=== PATIENT | female | born 1960 | race Caucasian/White ===

== ENCOUNTER 2024-11-15 12:38 | Outpatient (OUT) | payer MEDICARE, SELFPAY ==
--- NOTE | 2024-11-15 12:56 | XR_ITS ---
[place] [id number] Patient Name: FELICITY MARTINEZ MRN: [id number] date: 1960 Sex: F Assigned Patient Location: [facility] Current Patient Location: [facility] Accession/Order Number: [id number] Exam Date: 11/15/2024 14:11 Report Date: 11/15/2024 14:12 At the request of: HENOK DRISCOLL Procedure: XR shoulder RT min 2V RIGHT SHOULDER - - 3 views CLINICAL HISTORY: Right Shoulder Fall, Neck Pain, Recent Fall COMPARISON: None FINDINGS: Mild degenerative changes of the AC and glenohumeral joints without acute bony process. XR/XR shoulder RT min 2V IMPRESSION: MILD DEGENERATIVE CHANGES OF THE RIGHT SHOULDER WITHOUT ACUTE BONY PROCESS. Impression dictated by: Lawson Joe Jr.ODevan11/15/2024 2:12 PM Dictation Location: [employer] Electronically authenticated by: [id number] Y Date: 11/15/2024 14:12
--- NOTE | 2024-11-15 12:56 | XR_ITS ---
[place] [id number] Patient Name: FELICITY MARTINEZ MRN: [id number] date: 1960 Sex: F Assigned Patient Location: [facility] Current Patient Location: [facility] Accession/Order Number: [id number] Exam Date: 11/15/2024 14:11 Report Date: 11/15/2024 14:11 At the request of: HENOK DRISCOLL Procedure: XR cervical spine 5V CERVICAL SPINE 5 views: CLINICAL HISTORY: Right Shoulder Fall, Neck Pain, Recent Fall COMPARISON: None FINDINGS: Vertebral body heights appear maintained. Mild spondylosis C6-7. Mild diffuse facet joint degenerative changes. No prevertebral soft tissue swelling. XR/XR cervical spine 5V IMPRESSION: MILD SPONDYLOSIS C6-7. NO ACUTE BONY PROCESS IS SEEN. Impression dictated by: Shayne Duval Jr., D.O.11/15/2024 2:11 PM Dictation Location: [place] [id number] Electronically authenticated by: [id number] Y Date: 11/15/2024 14:11
== END 2024-11-15 12:39 | disposition home or self-care (01) ==
PROVIDERS: PCP Nurse Practitioner; Visit Provider Nurse Practitioner
DX: M25.511 Pain in right shoulder (principal); M54.2 Cervicalgia
CPT/HCPCS: 72050; 73030

== ENCOUNTER 2025-07-31 09:14 | Outpatient (OUT) | payer MEDICARE, SELFPAY ==
--- OUTSIDE RECORDS SUMMARY | 2025-07-31 09:20 | XMS_ITS | CCD ---
Author Organization [facility] Providers Care Java Websphere Developer Name Role Phone ROSE, DR REGINA Philip Admitting Unavailable KULKARNI, DR REGINA Philip Attending Unavailable KULKARNI, DR REGINA Philip Primary Care Unavailable KULKARNI, DR REGINA Philip Attending Unavailable KULKARNI, DR REGINA Philip Consulting Unavailable KULKARNI, DR REGINA Philip Primary Care Unavailable KULKARNI, DR REGINA Philip Admitting Unavailable BASCO, DR ELZBIETA Tomlinson Consulting Unavailable KULKARNI, DR REGINA Philip Attending Unavailable KULKARNI, DR REGINA Philip Consulting Unavailable ROSE, DR REGINA Philip Primary Care Unavailable KULKARNI, DR REGINA Philip Admitting Unavailable KULKARNI, DR REGINA Philip Admitting Unavailable KULKARNI, DR REGINA Philip Attending Unavailable KULKARNI, DR REGINA Philip Primary Care Unavailable REGINA KULKARNI Primary Care Physician REGINA KULKARNI Primary Care Physician Marilyn Pastrana Unavailable SIMON Pastrana Attending Provider Jenifer Landry Primary Care Physician [phone] Hector Panda Primary Care Physician [phone] Frantz, HORSE RIDING COACH OR INSTRUCTOR Jenifer Lynn Admitting Unavailable Frantz, HORSE RIDING COACH OR INSTRUCTOR Jenifer Lynn Attending Unavailable TATUMGERBER Admitting Unavailable TATUMGERBER Attending Unavailable GERBER WINN Attending Unavailable FrantzJenifer Attending Unavailable Frantz, Jenifer Lynn Admitting Unavailable Frantz, Jenifer Lynn Attending Unavailable Frantz, Jenifer Lynn Attending Unavailable KiLadarius little Attending Unavailable KiLadarius little Admitting Unavailable Frantz, Jenifer Lynn Attending Unavailable Frantz, Jenifer Lynn Attending Unavailable Frantz, Jenifer Lynn Admitting Unavailable Frantz, Jenifer Lynn Attending Unavailable FrantzJenifer Referring Unavailable Frantz, Jenifer Lynn Admitting Unavailable Frantz, Jenifer Lynn Attending Unavailable Frantz, Jenifer Lynn Attending Unavailable Fratnz, Jenifer Lynn Admitting Unavailable Perfecto PEREZ, Azra Herrera Attending Provider Jenifer España Primary Care Provider [phone] Frantz, Jenifer Lynn Attending Unavailable Frantz, Jenifer Lynn Attending Unavailable Frantz, Jenifer Lynn Attending Unavailable Frantz, Jenifer Lynn Attending Unavailable TATUM, GERBER Esqueda Attending Unavailable Frantz, Jenifer Lynn Attending Unavailable Frantz, Jenifer Lynn Admitting Unavailable Frantz, Jenifer Lynn Attending Unavailable TATUM, COFFEE URN ATTENDANT GERBER A Attending Unavailabl e TATUM, COFFEE URN ATTENDANT GERBER A Admitting Unavailabl e TATUM, GERBER A Attending Unavailable Ki, Ladarius Burdick Referring Unavailable Ik, Ladarius Burdick Attending Unavailable Ki, Ladarius Burdick Admitting Unavailable TATUM, GERBER A Attending Unavailable TATUM, GERBER A Admitting Unavailable TATUM, GERBER A Attending Unavailable TATUM, GERBER A Attending Unavailable Frantz, Jenifer Lynn Attending Unavailable Perfecto, Azra Herrera Admitting Unavailable Perfecto, Azra Herrera Attending Unavailable Frantz, Jenifer Lynn Attending Unavailable Frantz, Jenifer Lynn Attending Unavailable Allergies Allergy ClassificationReported Allergen(s)Allergy TypeDate of OnsetReaction(s) Facility (7 sources)No Known Medication Allergies; Translations: [No Known Medication Allergies]Propensity to adverse reactions (disorder)[facility] Medications Current Medications MedicationDrug Class(es)DatesSig (Normalized)Sig (Original)amoxicillin 875 mg / clavulanate 125 mg oral tablet (1 source)Penicillin-class AntibacterialStart: 08-20-2023 End: 19-52-1150xwhh 1 tablet by mouth every twelve hoursAugmentin 875 mg oral tablet = 1 tab(s), Oral, q12hr, X 7 day(s), # 14 tab(s), Refills(s) 0, Pharmacy: [id number], 158.7, cm, 08/20/23 13:46:00 EST, Height/Length Dosing, 77.8, kg, 08/20/2313:46:00 EST, Weight Dosing Start Date: 08/20/23 Stop Date: 08/27/23 Status: Orderedatorvastatin 20 mg oral tablet (4 sources)HMG-CoA Reductase InhibitorStart: 07-88-4072Pxeit: 14-58-1709ayjb 1 tablet by mouth once dailyatorvastatin 20 mg Tab See Instructions, TAKE 1 TABLET BY MOUTH EVERY DAY, # 90 tab(s), Refills(s) 1, Pharmacy: [facility] STORE [id number], 160, cm, 01/30/25 8:12:00 EDT, Height/Length Dosing, 83.9, kg, 01/30/25 8:12:00 EDT, Weight Dosing Start Date: 02/09/25 Status: Ordered Quantity: 90.0 Unit: tab(s) Repeat number: 1Start: 17-68-1195xmhz 1 tablet by mouth once dailyatorvastatin 20 mg Tab See Instructions, TAKE 1 TABLET BY MOUTH EVERY DAY, # 90 tab(s), Refills(s) 1, Pharmacy: [facility] ST[facility], 160, cm, 02/19/24 10:00:00 EDT, Height/Length Dosing, 77.4, kg, 02/19/24 10:00:00 EDT, Weight Dosing Start Date: 05/24/24 Status: Orderedcephalexin 500 mg oral capsule (2 sources)Cephalosporin AntibacterialStart: 65-33-8476uqze 1 capsule by mouth twice dailylevothyroxine sodium 0.025 mg oral tablet (20 sources)l-ThyroxineStart: 45-27-5087Csihw: 04-15-2025 End: 70-56-0737ndyg 1 tablet by mouth once dailyLevothyroxine (Synthroid) 100 mcg tablet Discontinued 100 MCG PO Daily April 15, 2025 12:00am June 04, 2025 11:12amStart: 46-18-4069scvc 1 tablet by mouth once dailylevothyroxine 25 mcg (0.025 mg) Tab 25 mcg, Oral, Daily, # 90 tab(s), Refills(s) 5, Pharmacy: [facility]/pharmacy #[id number], 158.7, cm, 01/06/24 8:43:00 EDT, Height/Length Dosing, 77.4, kg, 01/06/24 8:43:00 EDT, Weight Dosing Start Date: 01/06/24 Status: Ordered Quantity: 90.0 Unit: tab(s) Repeat number: 6Start: 55-64-1850plvn 25 ug by mouth once dailylevothyroxine 25 mcg, Oral, Daily, Refills(s) 0, Thyroid Start Date: 06/19/20 Status: OrderedSynthroid Activephenazopyridine hydrochloride 200 mg oral tablet (9 sources)Start: 62-88-4083nnxo 1 tablet by mouth every eight hoursPyridium 200 MG 1 tablet after meals Orally Three times a day for 2 day(s) May, Activesulfamethoxazole 800 mg / trimethoprim 160 mg oral tablet (11 sources)Dihydrofolate Reductase Inhibitor Antibacterial, Sulfonamide AntimicrobialStart: 08-30-2024 End: 30-51-7057Nnsbbfu D.S. 800 mg-160 mg Tab 1 tab(s), Oral, BID for 7 day(s), 14 tab(s), Refill(s) 0, [id number], 160, cm, 08/30/24 13:45:00 EST, Height/Length Dosing, 82.7, kg, 08/30/24 13:45:00 EST, Weight Dosing Start Date: 08/30/24 Stop Date: 09/06/24 Status: OrderedStart: 02-19-2024 End: 79-90-5241Janeqhi D.S. 800 mg-160 mg Tab 1 tab(s), Oral, BID for 5 day(s), 10 tab(s), Refill(s) 0, [id number], 160, cm, 02/19/24 10:00:00 EDT, Height/Length Dosing, 77.4, kg, 02/19/24 10:00:00 EDT, Weight Dosing Start Date: 02/19/24 Stop Date: 02/24/24 Status: OrderedStart: 00-77-6790segc 1 tablet by mouth every twelve hoursBactrim DS 800-160 MG 1 tablet Orally Twice a day for 10 day(s) May, Active Completed/Discontinued Medications MedicationDrug Class(es)DatesSig (Normalized)Sig (Original)amoxicillin 875 mg oral tablet (6 sources)Penicillin-class AntibacterialStart: 50-71-9742gfsc 1 tablet by mouth every twelve hoursAmoxicillin 875 MG 1 tablet Orally every 12 hrs for 7 days Feb, Not-Takingdextromethorphan hydrobromide 1.5 mg/ml / pyrilamine maleate 1.5 mg/ml oral solution (6 sources)Uncompetitive G-wiluro-D-aspartate Receptor Antagonist, Sigma-1 AgonistStart: 20-35-3878Pxieer DM 7.5-7.5 MG/5ML 10 ml Orally every 6-8 hours as needed for 8 days Feb, Not-Takingfluticasone propionate 0.05 mg/actuat metered dose nasal spray (6 sources)CorticosteroidStart: 01-03-6765efsg 1 spray(s) nasal route once daily Fluticasone Propionate 50 MCG/ACT 1 spray in each nostril Nasally Once a day for 21 days Oct, Not-Taking Problems Problem ClassificationProblemDateDocumented DateEpisodic/ChronicAllergic reactions (6 sources)Contact dermatitis due to poison francesca; Translations: [Allergic contact dermatitis due to plants, except food]94-96-9416BpgbbswkWgdiqlsor of lipid metabolism (7 sources)Ehxnrwwfmoqtyp14-76-1625IhoqkfnF Codes: Fall (6 sources)Fall in ioja79-30-1481Jvlpexfaogmte symptoms and ill-defined conditions (9 sources)Dysuria; Translations: [Increased frequency of urination]Onset: 02-97-9113WsdslmwbCqyzdphh; including migraine (6 sources)Aqoaotvu76-03-2291IrfmuacnPvckq valve disorders (7 sources)Mitral valve hcqhruff31-54-7880OiadkpsZpmkf and unspecified benign neoplasm (9 sources)Polyp of -62-0729QfazwimmWlqiw connective tissue disease (4 sources)Impingement syndrome of left shoulder; Translations: [IMPINGEMENT SYNDROME LEFT SHOULDER]Onset: 34-74-2262RlzyozjrCctlo connective tissue disease (1 source)Impingement syndrome of right shoulder; Translations: [IMPINGEMENT SYNDROME RIGHT SHOULDER]Onset: 47-81-3542HhewdaarGymne injuries and conditions due to external causes (6 sources)Injury of gadu67-21-3532VbwusqxxBvpku injuries and conditions due to external causes (1 source)History of izfo32-44-4650TzohijlmQwojy lower respiratory disease (2 sources)Lvbsp98-55-6861RsuqqoyzJtqfm non-traumatic joint disorders (4 sources)Pain in left shoulder; Translations: [PAIN IN LEFT SHOULDER]Onset: 62-39-2928LorivgwgKsscv nutritional; endocrine; and metabolic disorders (9 sources)Body mass index 30+ - qhidrac75-29-3028MvwjqeqYqgju nutritional; endocrine; and metabolic disorders (1 source)Simple -27-2471TondpgaOotgi upper respiratory disease (9 sources)Seasonal allergy; Translations: [Other seasonal allergic rhinitis] 27-90-1354EjfivztLoxzk upper respiratory infections (7 sources)Enllqaxab47-46-6460GjhcjwfGkohmsqmyzg; intervertebral disc disorders; other back problems (1 source)Neck qiqb93-03-2154GuiqvbkiSbwjbya disorders (20 sources)Hypothyroidism, unspecified; Translations: [Hypothyroidism]Onset: 53-13-5273UbdmxmoEkcdbqfthgyx (7 sources)Patient encounter hepcck97-24-0031Mcgjxipwkymw (1 source)Kqq-omorlb84-44octkrj73-33-9808Rabujaraazrc (1 source)Pain of right shoulder fasjjf88-16-9662Dylknxo tract infections (11 sources)Acute cystitis without hematuria; Translations: [Urinary tract infection, site not specified]Episodic Results Test NameValueInterpretationReference RangeFacilityAmbulatory Visit Summaryon 56-33-9474Mrjayeolbz Visit SummaryAmbulatory Visit Summary MEGAN MARTINEZ Morgan :1960 Visit Date:06/30/2025 Ambulatory Visit Instructions Your Diagnosis Plantar fasciitis Your Care Team Attending Physician - Jenifer Dotson Primary Care Physician - Jenifer Dotson This Is Your Medications List levothyroxine (levothyroxine 25 mcg (0.025 mg) Tab) Procedures Performed Colonoscopy (08/23/2020), Appendectomy, Cholecystectomy, Rotator cuff. Discharge Vitals Heart Rate (Peripheral) 83 Blood Pressure 120/60 Height 160 cm Height 63 in Weight 86.2 kg Weight 190.038 lb BMI 33.67 What to do next Scheduled Follow-Up Appointments Thursday2025 9:30 AM EDT Where: [place] [id number]- Medications What How Much When Instructions Unchanged levothyroxine (levothyroxine 25 mcg (0.025 mg) Tab) See instructions TAKE 1 TABLET BY MOUTH EVERY DAY Allergies No Known Allergies No Known Medication Allergies Problems Ongoing - Any problem that you are currently receiving treatment for. BMI 32.0-32.9,adult Colon polyp Exogenous obesity Hyperlipidemia Hypothyroidism Mitral valve prolapse Non-smoker Nonsmoker Obesity (BMI 30.0-34.9) Plantar fasciitis Wellness examination Historical - Any problem that you are no longer receiving treatment for. Acute urinary tract infection (bladder infection or UTI) BMI 30.0-30.9,adult BMI 31.0-31.9,adult Cough Fall in home Head injury Headache History of recent fall Neck pain Right shoulder pain Sinusitis Urinary frequency Patient Survey You may receive a survey via text or e-mail asking about your office visit. Please share your experience with us by completing your survey. We appreciate your feedback and thank you for choosing us for your care. Education Materials Plantar Fasciitis Plantar fasciitis is a painful foot condition that affects the heel. It occurs when the band of tissue that connects the toes to the heel bone (plantar fascia) becomes irritated. This can happen as the result of exercising too much or doing other repetitive activities (overuse injury). Plantar fasciitis can cause mild irritation to severe pain that makes it difficult to walk or move.The pain is usually worse in the morning after sleeping, or after sitting or lying down for a period of time. Pain may also be worse after long periods of walking or standing. What are the causes? This condition may be caused by: ??? Standing for long periods of time. ??? Wearing shoes that do not have good arch support. ??? Doing activities that put stress on joints (high-impact activities). This includes ballet and exercise that makes your heart beat faster (aerobic exercise), such as running. ??? Being overweight. ??? An abnormal way of walking (gait). ??? Tight muscles in the back of your lower leg (calf). ??? High arches in your feet or flat feet. ??? Starting a new athletic activity. What are the signs or symptoms? The main symptom of this condition is heel pain. Pain may get worse after the following: ??? Taking the first steps after a time of rest, especially in the morning after awakening, or after you have been sitting or lying down for a while. ??? Long periods of standing still. Pain may decrease after 30???45 minutes of activity, such as gentle walking. How is this diagnosed? This condition may be diagnosed based on your medical history, a physical exam, and your symptoms. Your health care provider will check for: ??? A tender area on the bottom of your foot. ??? A high arch in your foot or flat feet. ??? Pain when you move your foot. ??? Difficulty moving your foot. You may have imaging tests to confirm the diagnosis, such as: ??? X-rays. ??? Ultrasound. ??? MRI. How is this treated? Treatment for plantar fasciitis depends on how severe your condition is. Treatment may include: ??? Rest, ice, pressure (compression), and raising (elevating) the affected foot. This is called RICE therapy. Your health care provider may recommend RICE therapy along with kxbw-oan-bgdjyyy pain medicines to manage your pain. ??? Exercises to stretch your calves and your plantar fascia. ??? A splint that holds your foot in a stretched, upward position while you sleep (night splint). ??? Physical therapy to relieve symptoms and prevent problems in the future. ??? Injections of steroid medicine (cortisone) to relieve pain and inflammation. ??? Stimulating your plantar fascia with electrical impulses (extracorporeal shock wave therapy). This is usually the last treatment option before surgery. ??? Surgery, if other treatments have not worked after 12 months. Follow these instructions at home: Managing pain, stiffness, and swelling ??? If directed, put ice o (more content not included)...[facility] Medicine Office/Clinic Noteon [id number] Medicine Office/[facility] Note[facility] Note Chief Complaint right heel pain HPI Staff Pt is presenting for acute visit right heel pain Pain characteristics: Onset: yesterday Pain location: right heel Characteristics: can't apply pressure Medication used: ice History of Present Illness pt presents today with right heel pain Review of Systems PHQ Score Initial Depression Screen Score: 0 SCORE General: alert, no acute distress ENMT: oral mucosa moist, no pharyngeal erythema or exudate Cardiovascular: regular rate and rhythm, normal peripheral perfusion Respiratory: Lungs CTA, respirations non labored Extremities: no deformity, no trauma Neurological: oriented x 4, LOC appropriate for age, CN II-XII intact, motor strength equal & normal bilaterally, speech normal right heel all both sides and center bottom of foot painful, not redness or swelling Physical Exam Vitals & Measurements HR: 83(Peripheral) BP: 120/60 SpO2: 93% HT: 63 in HT: 160 cm WT: 190.038 lb WT: 86.2 kg BMI: 33.67 Assessment/Plan 1. Plantar fasciitis (M72.2: Plantar fascial fibromatosis) pt c/o worsening heel pain. she has been decorating her house the last couple of days and feels theheel pain has worsened. it is worst when she takes her first couple steps in the morning. will order meloxicam and medrol dose pack. if no improvement will refer to podiatry. RTC 4 weeks Ordered: meloxicam, 15 mg = 1 tab(s), Oral, Daily, # 30 tab(s), Refills(s) 0, Pharmacy: [facility]/pharmacy #[id number], 160, cm, 06/30/25 15:16:00 EST, Height/Length Dosing, 86.2, kg, 06/30/25 15:16:00 EST, Weight Dosing methylPREDNISolone, = 1 packet(s), Oral, As Directed, as directed on package labeling, X 6 day(s), # 21 tab(s), Refills(s) 0, Pharmacy: [facility]/pharmacy #[id number], 160, cm, 06/30/25 15:16:00 EST, Height/Length Dosing, 86.2, kg, 06/30/25 15:16:00 EST, Weight Dosing 2. BMI 33.0-33.9,adult (Z68.33: Body mass index [BMI] 33.0-33.9, adult) BMI education Follow-up No qualifying data available Patient Education Plantar Fasciitis Problem List/Past Medical History Ongoing BMI 32.0-32.9,adult BMI 33.0-33.9,adult Colon polyp Exogenous obesity Hyperlipidemia Hypothyroidism Mitral valve prolapse Non-smoker Nonsmoker Obesity (BMI 30.0-34.9) Plantar fasciitis Wellness examination Historical Acute urinary tract infection (bladder infection or UTI) BMI 30.0-30.9,adult BMI 31.0-31.9,adult Cough Fall in home Head injury Headache History of recent fall Neck pain Right shoulder pain Sinusitis Urinary frequency Procedure/Surgical History Colonoscopy (08/23/2020), Appendectomy, Cholecystectomy, Rotator cuff. Medications levothyroxine 25 mcg (0.025 mg) Tab, See Instructions Medrol 4 mg Tab, 1 packet(s), Oral, As Directed meloxicam 15 mg Tab, 15 mg= 1 tab(s), Oral, Daily Allergies No Known Allergies No Known Medication Allergies Social History Alcohol - Denies Alcohol Use, 02/01/2024 Never., 07/11/2024 Substance Abuse - Denies Substance Abuse, 06/19/2020 Never., 07/11/2024 Tobacco - Denies Tobacco Use, 06/19/2020 Never (less than 100 in lifetime) Tobacco Use:. Yes., 06/30/2025 Family History Family history is negative Immunizations Vaccine Date Status Comments influenza virus vaccine, inactivated 06/22/2024 Recorded influenza virus vaccine, inactivated 06/06/2023 Recorded influenza virus vaccine, inactivated 06/11/2022 Recorded SARS-CoV-2 (COVID-19) [id number] 05/06/2022 Recorded 2023-08-19: TPV60 SARS-CoV-2 (COVID-19) mRNA BNT-162b2 vax 08/15/2021 Recorded 2023-08-19: TPV60 influenza virus vaccine, inactivated 05/30/2021 Recorded SARS-CoV-2 (COVID-19) mRNA BNT-162b2 vax 12/28/2020 Recorded SARS-CoV-2 (COVID-19) mRNA BNT-162b2 vax 12/07/2020 Recorded influenza virus vaccine, inactivated 05/08/2020 Recorded influenza virus vaccine, inactivated 07/08/2019 Recorded influenza virus vaccine, inactivated 06/29/2018 Recorded influenza virus vaccine, inactivated 07/02/2017 RecordedGlenbeigh HospitalComment on above:Result Comment: Electronically Signed By: Jenifer Dotson.hardeep\Date and Time Signed: 06/30/25 15:32 ESTUrine Cultureon [id number] identified Cx Nom (U)Urine Culture Results >100,000 col/ml Mixed Bacterial Skin Contaminants 2 Days PERFORMED BY: [address] [place] [address] PATHOLOGIST DIETETIC INTERN AMEE NAVARRETE M.D.[facility] Physician GroupComment on above: Performed By: #### CUU #### [address] [address] [facility] – [place] Urineon [id number] identified Cx Nom (U) Microbiology PROCEDURE: Urine Culture [R1] SOURCE: U Random BODY SITE: COLLECTED DATE/TIME: 05/18/2025 13:22 EDT RECEIVED DATE/TIME: 05/18/2025 17:30 EDT START DATE/TIME: 05/18/2025 17:30 EDT FREE TEXT SOURCE: GERBER WINN CNP, CNP, GERBER Esqueda FINAL REPORTS Final Report [] Verified Date/Time: 05/20/2025 10:11 EDT 3,000 cfu/ml Mixed skin contaminants Performing Locations R1: This test was performed at: [facility], [address] [place] [address], [id number] [place] [address], NxvixgMbyugyGlenbeigh HospitalComment on above:Performed By: #### [id number] #### [facility] [address] [place] [id number] Urineon [id number] identified Cx Nom (U)Microbiology PROCEDURE: Urine Culture [R1] SOURCE: U Random BODY SITE: COLLECTED DATE/TIME: 05/11/2025 16:17 EDT RECEIVED DATE/TIME: 05/12/2025 17:11 EDT START DATE/TIME: 05/12/2025 17:11 EDT FREE TEXT SOURCE: GERBER WINN CNP, CNP, GERBER Esqueda FINAL REPORTS Final Report [] Verified Date/Time: 05/14/2025 06:53 EDT 30,000 cfu/ml Escherichia coli SUSCEPTIBILITY RESULTS LEGEND: S=Susceptible, N/R=Not Reported, Blank=Data not available, or drug not advisable or tested, I=Intermediate, ESBL=Extended spectrum beta-lactamase, R=Resistant, TFG=Thymidine-dependent strain, SOLE=Beta-lactamase positive, KENTON=mcg/m;(mg/L), S*=Predicted susceptible interp, R*=Predicted resistant interp EC Antibiotic KENTON Dilutn KENTON Interp Ampicillin <=8 S Ampicillin/ <=8/4 S Sulbactam Cefazolin <=2 S Cefepime <=2 S Ceftazidime/ <=8 S Avibactam Ceftriaxone <=1 S Cefuroxime <=4 S Ciprofloxacin <=0.25 S Ertapenem <=0.5 S Gentamicin <=2 S Levofloxacin <=0.5 S Meropenem <=1 S Nitrofurantoin <=32 S Piperacillin/ <=8 S Tazobactam Tetracycline <=4 S Tobramycin <=2 S Trimethoprim/ <=2/38 S Sulfa Performing Locations R1: This test was performed at: [facility], [address] [place] [address], [id number] , , SmofpoQvwqfcGlenbeigh HospitalComment on above:Performed By: #### [id number] #### [facility] [address] [place] [id number] Visit Summaryon [id number] Visit Summary Ambulatory Visit Summary MEGAN MARTINEZ :1960 Visit Date:05/11/2025 Ambulatory Visit Instructions Your Diagnosis Dysuria UTI symptoms Your Care Team Attending Physician - GERBER WINN CNP Primary Care Physician - Jenifer Dotson This Is Your Medications List levothyroxine (levothyroxine 25 mcg (0.025 mg) Tab) nitrofurantoin (Macrodantin 100 mg oral capsule) Procedures Performed Colonoscopy (08/23/2020), Appendectomy, Cholecystectomy, Rotator cuff. Discharge Vitals Temperature (Oral) 36.8 ???C Heart Rate (Peripheral) 92 Respiratory Rate 18 Blood Pressure 128/82 Height 160 cm Height 63 in Weight 85.2 kg Weight 187.834 lb BMI 33.28 What to do next Scheduled Follow-Up Appointments 2024 10:00 AM EDT Where: [address] [address]- Thursday2025 9:30 AM EDT Where: [place] [id number]- You Need to Schedule the Following Appointments Follow Up with GERBER WINN CNP, FAM When: Within 1 week Comments: EVA PARSON Where: [address] [place] [address] [phone] Business (1) Medications What How Much When Why Instructions New nitrofurantoin (Macrodantin 100 mg oral capsule) 1 Capsules By Mouth 4 times a day Dysuria UTI symptoms Duration: 7 Days Pickup at [facility]/pharmacy #[id number] Unchanged levothyroxine (levothyroxine 25 mcg (0.025 mg) Tab) See instructions TAKE 1 TABLET BY MOUTH EVERY DAY Pharmacy Information [facility]/pharmacy #[id number]: [address] [place], [place] [id number] [phone] Allergies No Known Allergies No Known Medication Allergies Problems Ongoing - Any problem that you are currently receiving treatment for. BMI 32.0-32.9,adult Colon polyp Exogenous obesity Hyperlipidemia Hypothyroidism Mitral valve prolapse Non-smoker Nonsmoker Obesity (BMI 30.0-34.9) Wellness examination Historical - Any problem that you are no longer receiving treatment for. Acute urinary tract infection (bladder infection or UTI) BMI 30.0-30.9,adult BMI 31.0-31.9,adult Cough Fall in home Head injury Headache History of recent fall Neck pain Right shoulder pain Sinusitis Urinary frequency Patient Survey You may receive a survey via text or e-mail asking about your office visit. Please share your experience with us by completing your survey. We appreciate your feedback and thank you for choosing us for your care. Education Materials Dysuria Dysuria is pain or discomfort during urination. The pain or discomfort may be felt in the part of the body that drains urine from the bladder (urethra) or in the surrounding tissue of the genitals. The pain may also be felt in the groin area, lower abdomen, or lower back. You may have to urinate frequently or have the sudden feeling that you have to urinate (urgency). Dysuria can affect anyone, but it is more common in females. Dysuria can be caused by many different things, including: ??? Urinary tract infection. ??? Kidney stones or bladder stones. ??? Certain STIs (sexually transmitted infections), such as chlamydia. ??? Dehydration. ??? Inflammation of the tissues of the vagina. ??? Use of certain medicines. ??? Use of certain soaps or scented products that cause irritation. Follow these instructions at home: Medicines ??? Take pqsd-mgk-ipjeqzu and prescription medicines only as told by your health care provider. ??? If you were prescribed an antibiotic medicine, take it as told by your health care provider. Do notstop taking the antibiotic even if you start to feel better. Eating and drinking ??? Drink enough fluid to keep your urine pale yellow. ??? Avoid caffeinated beverages, tea, and alcohol. These beverages can irritate the bladder and make dysuria worse. In males, alcohol may irritate the prostate. General instructions ??? Watch your condition for any changes. ??? Urinate often. Avoid holding urine for long periods of time. ??? If you are female, you should wipe from front to back after urinating or having a bowel movement. Use each piece of toilet paper only once. ??? Empty your bladder after sex. ??? Keep all follow-up visits. This is important. ??? If you had any tests done to find the cause of dysuria, it is up to you to get your test results. Ask your health care provider, or the department that is doing the test, when your results will be ready. Contact a health care provider if: ??? You have a fever. ??? You develop pain in your back or sides. ??? You have nausea or vomiting. ??? You have blood in your urine. ??? You are not urinating as often as you usually do. Get help right away if: ??? Your pain is severe and not relieved w (more content not included)...Normal [facility] Medicine Office/Clinic Noteon [id number] Medicine [facility] Note Chief Complaint Possible UTI The patient reports urinary urgency and frequency with bloating. HPI Staff Pt presents today due to burning with urination. Dysuria: Onset: this morning Symptoms: frequency, bloated OTC used: AZO Last UTI: NEG C&S 09/13/24 UA in office documented in chart History of Present Illness 65-year-old female presenting with symptoms suggestive of a urinary tract infection. Her symptoms began this morning, characterized by urinary urgency and frequency, along with a sensation of bloating. She denies experiencing fever or dysuria, although there was a concern about the color of her urine due to Azo intake. A urinalysis indicated the presence of nitrites, suggestive of a bacterial infection, likely causedby Escherichia coli. The patient has no known medication allergies and reports no history of diabetes, although glycosuria was noted during the examination. The patient adheres to proper hygiene practices, such as wiping front to back, to prevent urinary tract infections. Review of Systems PHQ Score Initial Depression Screen Score: 0 SCORE - General: Denies fever - Genitourinary: Reports urinary urgency and frequency, denies dysuria Physical Exam Vitals & Measurements T: 36.8 ???C(Oral) HR: 92(Peripheral) RR: 18 BP: 128/82 SpO2: 96% HT: 160 cm HT: 63 in WT: 187.834 lb WT: 85.2 kg BMI: 33.28 General: alert, no acute distress Skin: warm, dry Cardiovascular: regular rate and rhythm, normal peripheral perfusion Respiratory: Lungs CTA, respirations non labored Gastrointestinal: soft, non distended, no CV tenderness, no guarding. Back: No tenderness, Normal ROM, Normal alignment. Assessment/Plan 1. Dysuria (R30.0: Dysuria) - Initiate antibiotic therapy with a short course of treatment to minimize resistance, considering the likely causative agent is Escherichia coli. - Encourage increased fluid intake to aid in flushing the urinary tract. - F/u one week repeat UA Ordered: nitrofurantoin, 100 mg = 1 cap(s), Oral, QID, X 7 day(s), # 28 cap(s), Refills(s) 0, Pharmacy: [facility]/pharmacy #[id number], 160, cm, 05/11/25 16:00:00 EDT, Height/Length Dosing, 85.2, kg, 05/11/25 16:00:00 EDT, Weight Dosing Urnls Dip Stick Auto w/o Microscopy POC 53587 UTI symptoms (R39.9: Unspecified symptoms and signs involving the genitourinary system) - Initiate antibiotic therapy with a short course of treatment to minimize resistance, considering the likely causative agent is Escherichia coli. - Encourage increased fluid intake to aid in flushing the urinary tract. - F/u one week repeat UA Ordered: nitrofurantoin, 100 mg = 1 cap(s), Oral, QID, X 7 day(s), # 28 cap(s), Refills(s) 0, Pharmacy: [facility]/pharmacy #[id number], 160, cm, 05/11/25 16:00:00 EDT, Height/Length Dosing, 85.2, kg, 05/11/25 16:00:00 EDT, Weight Dosing Orders: predniSONE, See Instructions, take two tabs po BID x 3 days, then one tablet po BID x 3 days, then one tablet po daily x 3 days, # 21 tab(s), Refills(s) 0, Pharmacy: [facility]/pharmacy #[id number], 160, cm, 04/20/25 8:21:00 EDT, Height/Length Dosing, 84, kg, 04/20/25 8:21:00... Follow-up With When Contact Information GERBER WINN CNP, FAM Within [address] [place] [phone] Business (1) Additional Instructions: NV- UA Patient Education Dysuria Problem List/Past Medical History Ongoing BMI 32.0-32.9,adult Colon polyp Exogenous obesity Hyperlipidemia Hypothyroidism Mitral valve prolapse Non-smoker Nonsmoker Obesity (BMI 30.0-34.9) Wellness examination Historical Acute urinary tract infection (bladder infection or UTI) BMI 30.0-30.9,adult BMI 31.0-31.9,adult Cough Fall in home Head injury Headache History of recent fall Neck pain Right shoulder pain Sinusitis Urinary frequency Procedure/Surgical History Colonoscopy (08/23/2020), Appendectomy, Cholecystectomy, Rotator cuff. Medications levothyroxine 25 mcg (0.025 mg) Tab, See Instructions Macrodantin 100 mg oral capsule, 100 mg= 1 cap(s), Oral, QID Allergies No Known Allergies No Known Medication Allergies Social History Alcohol - Denies Alcohol Use, 02/01/2024 Never., 07/11/2024 Substance Abuse - Denies Substance Abuse, 06/19/2020 Never., 07/11/2024 Tobacco - Denies Tobacco Use, 06/19/2020 Never (less than 100 in lifetime) Tobacco Use:. Never Smokeless Tobacco Use:. Household tobacco concerns: No. Yes, 05/11/2025 Family History Family history is negative Immunizations Vaccine Date Status Comments influenza virus vaccine, inactivated 06/22/2024 Recorded influenza virus vaccine, inactivated 06/06/2023 Recorded influenza virus vaccine, inactivated 06/11/2022 Recorded SARS-CoV-2 (COVID-19) [id number] 05/06/2022 Recorded 2023-08-19: TPV60 SARS-CoV-2 (COVID-19) mRNA BNT-162b2 vax 08/15/2021 Recorded 2023-08-19: TPV60 influenza virus vaccine, inactivated 05/30/2021 Recorded SARS-CoV-2 (COVID-19) (more content not included)...[facility] HospitalComment on above:Result Comment: Electronically Signed By: GERBER WINN CNP\.hardeep\Date and Time Signed: 05/11/25 16:13 EDTAmbulatory Visit Summaryon [id number] Visit SummaryAmbulatory Visit Summary MEGAN MARTINEZ Morgan :1960 Visit Date:04/20/2025 Ambulatory Visit Instructions Your Diagnosis Poison francesca dermatitis BMI 32.0-32.9,adult Obesity (BMI 30.0-34.9) Nonsmoker Your Care Team Attending Physician - GERBER WINN CNP Primary Care Physician - Jenifer Dotson This Is Your Medications List levothyroxine (levothyroxine 25 mcg (0.025 mg) Tab) Procedures Performed Colonoscopy (08/23/2020), Appendectomy, Cholecystectomy, Rotator cuff. Discharge Vitals Temperature (Oral) 36.8 ???C Heart Rate (Peripheral) 86 Respiratory Rate 18 Blood Pressure 132/86 Height 160 cm Height 63 in Weight 84 kg Weight 185.188 lb BMI 32.81 What to do next Scheduled Follow-Up Appointments Thursday2025 9:30 AM EDT Where: [place] [id number]- Medications What How Much When Instructions Unchanged levothyroxine (levothyroxine 25 mcg (0.025 mg) Tab) See instructions TAKE 1 TABLET BY MOUTH EVERY DAY Allergies No Known Allergies No Known Medication Allergies Problems Ongoing - Any problem that you are currently receiving treatment for. BMI 32.0-32.9,adult Colon polyp Exogenous obesity Hyperlipidemia Hypothyroidism Mitral valve prolapse Non-smoker Nonsmoker Obesity (BMI 30.0-34.9) Wellness examination Historical - Any problem that you are no longer receiving treatment for. Acute urinary tract infection (bladder infection or UTI) BMI 30.0-30.9,adult BMI 31.0-31.9,adult Cough Fall in home Head injury Headache History of recent fall Neck pain Right shoulder pain Sinusitis Urinary frequency Patient Survey You may receive a survey via text or e-mail asking about your office visit. Please share your experience with us by completing your survey. We appreciate your feedback and thank you for choosing us for your care. Patient Portal You may access all of your results and other medical record information on our secure patient portal. If you are not signed up for this yet, please contact [employer] Management at [phone] to get signed up today. Language Information Language assistance services are available as needed. [facility] Medicine Office/Clinic Noteon [id number] Medicine Office/Clinic Note[facility] Medicine Office/Clinic Note Chief Complaint Possible poison Francesca The patient complains of recurrent itching and rash due to poison francesca exposure. HPI Staff Pt presents today due to possible poison francesca. Started 2wks ago, on neck. Has now began to spread down arms, stomach and into groin area. Has tried using several OTC creams. I have reviewed and verified the staff HPI to be accurate for this encounter. History of Present Illness 65-year-old female patient of MEGAN Genao presenting with recurrent poison francesca dermatitis. The condition initially manifested a month ago following yard work, and the patient has experienced repeated exposure due to similar activities. The rash is characterized by erythema and pruritus, with the patient self- inoculating by scratching affected areas and inadvertently spreading the rash. Previously, the patient was treated with prednisone, which provided relief, but the recurrence of symptoms necessitated another visit. The patient has been using ejqt-oue-sxfrnuo treatments such as cortisone cream, calamine lotion, and antihistamines like Claritin to manage symptoms. The patient isadvised to avoid further exposure to poison francesca and to refrain from scratching to prevent spreadingthe rash. Review of Systems PHQ Score Initial Depression Screen Score: 0 SCORE - Dermatological: Reports erythematous rash and pruritus due to poison francesca exposure. - Respiratory: Denies any respiratory symptoms. Physical Exam Vitals & Measurements T: 36.8 ???C(Oral) HR: 86(Peripheral) RR: 18 BP: 132/86 SpO2: 97% HT: 160 cm HT: 63 in WT: 185.188 lb WT: 84 kg BMI: 32.81 General: alert, no acute distress Skin: area of scaling and erythema along, right neck, under breast, and under the apron fold Head: no trauma, normocephalic Neck: Trachea midline, no adenopathy, no tenderness Eye: normal conjunctiva, sclera clear Cardiovascular: regular rate and rhythm, normal peripheral perfusion Respiratory: Lungs CTA, respirations non labored Extremities: no deformity, no trauma Assessment/Plan 1. Poison francesca dermatitis (L23.7: Allergic contact dermatitis due to plants, except food) - Initiate a 9-day course of prednisone to manage inflammation and pruritus. - Recommend the use of hcpl-bpi-tzkgfzc antihistamines such as Claritin or Zyrtec to alleviate itching. - Advise continued use of topical treatments like cortisone cream and calamine lotion. - Instruct the patient to avoid further exposure to poison francesca and to refrain from scratching to prevent spreading the rash. - F/U as needed with pcp Ordered: predniSONE, See Instructions, Take two tablets po BID x 3 days; then one tablet po BID x 3 days; then one tablet po QD x 3 days, # 21 tab(s), Refills(s) 0, [id number] 160, cm, 03/13/25 9:40:00 EDT, Height/Length Dosing, 85.6, kg, 03/13/25 9:40:... predniSONE, See Instructions, take two tabs po BID x 3 days, then one tablet po BID x 3 days, then one tablet po daily x 3 days, # 21 tab(s), Refills(s) 0, [id number] 160, cm, 04/20/25 8:21:00 EDT, Height/Length Dosing, 84, kg, 04/20/25 8:21:00... 2. BMI 32.0-32.9,adult (Z68.32: Body mass index [BMI] 32.0-32.9, adult) BMI 32.81 Ordered: predniSONE, See Instructions, take two tabs po BID x 3 days, then one tablet po BID x 3 days, then one tablet po daily x 3 days, # 21 tab(s), Refills(s) 0, Pharmacy: [facility] #[id number], 160, cm, 04/20/25 8:21:00 EDT, Height/Length Dosing, 84, kg, 04/20/25 8:21:00... 3. Obesity (BMI 30.0-34.9) (E66.811: Obesity, class 1) The standard range for ages 18 and older is >=18.5 and < 25 kg/m2. Your BMI today was above this range, this falls in the overweight to obese category and there are medical benefits to weight loss. We can offer counselling, referral, and/or medical support in addressing this problem. Your BMIand weight management will be followed at subsequent visits. Ordered: predniSONE, See Instructions, take two tabs po BID x 3 days, then one tablet po BID x 3 days, then one tablet po daily x 3 days, # 21 tab(s), Refills(s) 0, Pharmacy: [facility]/pharmacy #[id number], 160, cm, 04/20/25 8:21:00 EDT, Height/Length Dosing, 84, kg, 04/20/25 8:21:00... 4. Nonsmoker (Z78.9: Other specified health status) Encouraged to continue as a non-smoker Ordered: predniSONE, See Instructions, take two tabs po BID x 3 days, then one tablet po BID x 3 days, then one tablet po daily x 3 days, # 21 tab(s), Refills(s) 0, Pharmacy: [facility]/pharmacy #[id number], 160, cm, 04/20/25 8:21:00 EDT, Height/Length Dosing, 84, kg, 04/20/25 8:21:00... Current tobacco non-user 1036F Functional status assessed 1170F Medication list documented in medical record 1159F Review of all meds by a prescribing practitioner or clinical pharmacist documented in EHR 1160F Follow-up No qualifying data available Patient Education Poison Francesca Dermatitis, Ocat-ja-Iavu Problem List/Past Medical History Ongoing BMI 32.0-32.9,adult Colon polyp Exoge (more content not included)...[facility] HospitalComment on above:Result Comment: Electronically Signed By: GERBER WINN CNP\.hardeep\Date and Time Signed: 04/20/25 08:40 EDTBD Bone Density DEXAon [id number] Bone Density DEXAExam Date/Time: 04/14/2025 14:35 EDT Reason for Exam: Z78.0 Report IMPRESSION: BONE DENSITY IS WITHIN NORMAL LIMITS. The NOF/ISD guideline recommend FRAX for postmenopausal patients (not on treatment) if the lowest T-score for Spine(L1-L4), Femur Neck or Femur Total indicates low bone density (T score between -1.0 to -2.5, osteopenia). EXAM: [facility] Bone Density DEXA CLINICAL HISTORY: Z78.0. COMPARISON: 06/18/2020. COMMENT: The lumbar spine and both hips were scanned. The mean bone mineral density from L1 to L4 is 1.187 g/cm2 and this value is 0.1 standard of deviation above the standard reference value for a young adult. Bone mineral density of the left femoral neck is 1.139 g/cm2 and this value is 0.7 standard of deviation above the standard reference value. Bone mineral density of the right femoral neck is 0.960 g/cm2 and this value is -0.6 standard of deviation below the standard reference value. These values are within the normal range. Compared to prior study, 3.1% increase in BMD of the lumbar spine, 7.7% increase in BMD of the left femoral neck, and 4.5% decrease in BMD of the right femoral neck. RECOMMENDATIONS: 1. All patients should optimize her calcium and vitamin D intake. 2. Consider FDA-approved medical therapies in postmenopausal women and minimal age 50 years and older, based on the following: - hip or vertebral (clinical or morphometric) fracture. - T-score less than or equal to -2.5 at the femoral neck or spine after the appropriate evaluation to exclude secondary causes. - Low bone density (T score between -1.0 and -2.5 at the femoral neck or spine) and a 10 year probability of hip fracture greater than or equal to 3% or a 10-year probability of a major osteoporosis-related fracture greater than or equal to 20% based on FRAX calculation. - Clinician judgment and/or patient preferences may indicate treatment for palpable attenuation fracture probability is above or below these levels. - Further guidance on treatment can be found at the National Osteoporosis Foundation's website: bonesource.org 3. Patients with diagnosis of osteoporosis or high risk for fracture. There are irregular bone mineral density tests. For patients eligible for Medicare, routine testing is allowed once every 2 years. Testing frequency can be increased to 1 year for patient's history of rapidly progressing disease, those who are receiving or discontinuing medical therapy to restore bone mass or have additional risk factors. Report Ordering Provider: Ladarius Emerson FINAL REPORT Dictated: 04/17/2025 3:39 pm Brice Son MD. Signed (Electronic Signature): 04/17/2025 3:39 pm Signed by: Brice Son MD Transcribed by: ALYSSA Technologist: [facility] CenterMA Mamm Screen w/CAD if perf and 3D Bilon [id number] Mamm Screen w/CAD if perf and 3D BilExam Date/Time: 04/14/2025 15:14 EDT Reason for Exam: Z08.23 Report IMPRESSION: BIRADS 1 NEGATIVE, NORMAL INTERVAL FOLLOW-UP.12 MONTH RECALL. CLINICAL HISTORY: Z12.. COMPARISON: 02/09/2024. COMMENT: Tomosynthesis views of both breasts were obtained. There are scattered areas of fibroglandular density. No dominant breast mass nor neoplastic calcifications are identified in either breast. There has been no significant change from the previous exam. The examination was reviewed with Computer Aided Detection. Breast Density: No Mammography is very important to your health. The current [employer] [place] [employer] and National Comprehensive Cancer Network guidelines recommends annual mammography beginning at age 40. This facility utilizes a reminder system to ensure all patients receive reminder notifications at the appropriate time based on the recommendations of this exam. Board Certified Radiologists. Accredited by the ACR and FDA. Ordering Provider: Ladarius Emerson FINAL REPORT Dictated: 04/17/2025 3:20 pm Kendall Crystal M.D. Signed (Electronic Signature): 04/17/2025 3:20 pm Signed by: Kendall Crystal M.D. Transcribed by: ALYSSA Technologist: AP Assessment: BI-RADS Category 1-Negative Recommendation: Normal [facility] Ambulatory Visit Summaryon [id number] Visit SummaryAmbulatory Visit Summary MEGAN MARTINEZ :1960 Visit Date:03/13/2025 Ambulatory Visit Instructions Your Diagnosis Poison francesca Your Care Team Attending Physician - GERBER WINN CNP Primary Care Physician - Jenifer Dotson This Is Your Medications List levothyroxine (levothyroxine 25 mcg (0.025 mg) Tab) predniSONE (predniSONE 10 mg Tab) Procedures Performed Colonoscopy (08/23/2020), Appendectomy, Cholecystectomy, Rotator cuff. Discharge Vitals Temperature (Temporal Artery) 36.2 ???C Heart Rate (Peripheral) 82 Respiratory Rate 18 Blood Pressure 118/80 Height 160.0 cm Height 63 in Weight 85.6 kg Weight 188.715 lb BMI 33.44 What to do next Scheduled Follow-Up Appointments Thursday 2:30 PM EDT Where: [facility] Thursday 3:00 PM EDT Where: [facility] Thursday2025 8:00 AM EDT Where: [facility] [place] [place] [address]- Medications What How Much When Why Instructions New predniSONE (predniSONE 10 mg Tab) See instructions Poison francesca Take two tablets po BID x 3 days;then one tablet po BID x 3 days; then one tablet po QD x 3 days Pickup at [facility]/pharmacy #[id number] Unchanged levothyroxine (levothyroxine 25 mcg (0.025 mg) Tab) See instructions TAKE 1 TABLET BY MOUTH EVERY DAY Pharmacy Information [facility]/pharmacy #[id number]: [address] [place], [place] [phone] Medications and Immunizations Administered Given Kenalog-40, 60 mg, IntraARTICULAR. For: Poison francesca Allergies No Known Allergies No Known Medication Allergies Problems Ongoing - Any problem that you are currently receiving treatment for. BMI 32.0-32.9,adult Colon polyp Exogenous obesity Hyperlipidemia Hypothyroidism Mitral valve prolapse Non-smoker Wellness examination Historical - Any problem that you are no longer receiving treatment for. Acute urinary tract infection (bladder infection or UTI) BMI 30.0-30.9,adult BMI 31.0-31.9,adult Cough Fall in home Head injury Headache History of recent fall Neck pain Right shoulder pain Sinusitis Urinary frequency Patient Survey You may receive a survey via text or e-mail asking about your office visit. Please share your experience with us by completing your survey. We appreciate your feedback and thank you for choosing us for your care. Education Materials Poison Francesca Dermatitis Poison francesca dermatitis is redness and soreness of the skin caused by chemicals in the leaves of the poison francesca plant. You may have very bad itching, swelling, a rash, and blisters. What are the causes? Touching a poison francesca plant. ??? Touching something that has the chemical on it. This may include animals or objects that have come in contact with the plant. What increases the risk? Going outdoors often in wooded or marshy areas. ??? Going outdoors without wearing protective clothing, such as closed shoes, long pants, and a long-sleeved shirt. What are the signs or symptoms? Skin redness. ??? Very bad itching. ??? A rash that often includes bumps and blisters. ? The rash usually appears 48 hours after exposure, if you have had it before. ? If this is the first time you have it, the rash may not appear until a week after exposure. ??? Swelling. This may occur if the reaction is very bad. Symptoms usually last for 1???2 weeks. The first time you get this condition, symptoms may last 3???4 weeks. How is this treated? This condition may be treated with: ??? Hydrocortisone cream or calamine lotion to relieve itching. ??? Oatmeal baths to soothe the skin. ??? Medicines, such as yfpq-yqq-gczxwsj antihistamine tablets. ??? Oral steroid medicine for very bad reactions. Follow these instructions at home: Medicines ??? Take or apply mgpd-ado-hckctga and prescription medicines only as told by your doctor. ??? Use hydrocortisone cream or calamine lotion as needed to help with itching. General instructions ??? Do not scratch or rub your skin. ??? Put a cold, wet cloth (cold compress) on the affected areas or take baths in cool water. This will help with itching. ??? Avoid hot baths and showers. ??? Take oatmeal baths as needed. Use colloidal oatmeal. You can get this at a pharmacy or grocery store. Follow the instructions on the package. ??? While you have the rash, wash your clothes right after you wear them. ??? Check the affected area every day for signs of infection. Check for: ? More redness, swelling, or pain. ? Fluid or blood. ? Warmth. ? Pus or a bad smell. ??? Keep all follow-up visits. Your doctor may want to see how your skin is doing with treatment. How is this prevented? Know what poison francesca looks like, so you can avoid it. ? This pl (more content not included)...[facility] Office/Clinic Noteon [id number] Medicine Office/Clinic NoteFajosiah b. [facility] Medicine Office/Clinic Note Chief Complaint The patient presents with a rash due to poison francesca exposure. HPI Staff Megan is a 64 year old female presenting with poison francesca Onset: a week Location: stomach, under breast, right side of face and neck down both shoulders, both wrist Tried: Calamine History of Present Illness 64 year old patient of Patrick Landry CNP presents today for evaluation of poison francesca. The rash began approximately one week ago, and the patient has been using calamine lotion and othertopical treatments to manage the symptoms. She has not previously received a Kenalog injection but is open to it as a treatment option. The patient has a mammogram scheduled for the , which she may need to reschedule due to the current rash. Review of Systems PHQ Score Initial Depression Screen Score: 0 SCORE - Dermatological: Reports rash due to poison francesca exposure for one week - Respiratory: Denies any breathing difficulties Physical Exam Vitals & Measurements T: 36.2 ???C(Temporal Artery) HR: 82(Peripheral) RR: 18 BP: 118/80 SpO2: 97% HT: 160.0 cm HT: 63 in WT: 85.6 kg WT: 188.715 lb BMI: 33.44 General: alert, no acute distress Skin: right side of neck erythematous with various stages of macules; area under both breast erythematous, with open macules and crusting macules Head: no trauma, normocephalic Eye: normal conjunctiva, sclera clear Cardiovascular: regular rate and rhythm, normal peripheral perfusion Respiratory: Lungs CTA, respirations non labored Extremities: no deformity, no trauma Neurological: oriented x 4, LOC appropriate for age speech normal Assessment/Plan 1. Poison francesca (L23.7: Allergic contact dermatitis due to plants, except food) - Administer Kenalog injection today to manage the allergic reaction. - Prescribe oral prednisone to be started the day after the injection, with a tapering dose over six days. - Continue use of topical treatments such as calamine lotion. - Advised to reschedule mammogram - f/u as needed Ordered: predniSONE, See Instructions, Take two tablets po BID x 3 days; then one tablet po BID x 3 days; then one tablet po QD x 3 days, # 21 tab(s), Refills(s) 0, Pharmacy: [facility]/pharmacy #[id number], 160, cm, 03/13/25 9:40:00 EDT, Height/Length Dosing, 85.6, kg, 03/13/25 9:40:... triamcinolone, 60 mg = 1.5 mL, Injection, IntraARTICULAR, Once, Stop date 03/13/25 9:52:00 EDT, Routine, Start date 03/13/25 9:52:00 EDT, 03/13/25 9:52:00 EDT triamcinolone, 60 mg = 1.5 mL, Injection, IntraARTICULAR, Once, Stop date 03/13/25 9:53:00 EDT, Routine, Start date 03/13/25 9:53:00 EDT, 03/13/25 9:53:00 EDT Follow-up No qualifying data available Patient Education Poison Francesca Dermatitis, Giwa-ek-Anjx Problem List/Past Medical History Ongoing BMI 32.0-32.9,adult Colon polyp Exogenous obesity Hyperlipidemia Hypothyroidism Mitral valve prolapse Non-smoker Wellness examination Historical Acute urinary tract infection (bladder infection or UTI) BMI 30.0-30.9,adult BMI 31.0-31.9,adult Cough Fall in home Head injury Headache History of recent fall Neck pain Right shoulder pain Sinusitis Urinary frequency Procedure/Surgical History Colonoscopy (08/23/2020), Appendectomy, Cholecystectomy, Rotator cuff. Medications atorvastatin 20 mg Tab Kenalog-40, 60 mg= 1.5 mL, IntraARTICULAR, Once levothyroxine 25 mcg (0.025 mg) Tab, See Instructions predniSONE 10 mg Tab, See Instructions Allergies No Known Allergies No Known Medication Allergies Social History Alcohol - Denies Alcohol Use, 02/01/2024 Never., 07/11/2024 Substance Abuse - Denies Substance Abuse, 06/19/2020 Never., 07/11/2024 Tobacco - Denies Tobacco Use, 06/19/2020 Never (less than 100 in lifetime) Tobacco Use:. Never Smokeless Tobacco Use:. Household tobacco concerns: No. Yes, 03/13/2025 Family History Family history is negative Immunizations Vaccine Date Status Comments influenza virus vaccine, inactivated 06/22/2024 Recorded influenza virus vaccine, inactivated 06/06/2023 Recorded influenza virus vaccine, inactivated 06/11/2022 Recorded SARS-CoV-2 (COVID-19) mRNAMUL.ORD![id number] 05/06/2022 Recorded 2023-08-19: TPV60 SARS-CoV-2 (COVID-19) mRNA BNT-162b2 vax 08/15/2021 Recorded 2023-08-19: TPV60 influenza virus vaccine, inactivated 05/30/2021 Recorded SARS-CoV-2 (COVID-19) mRNA BNT-162b2 vax 12/28/2020 Recorded SARS-CoV-2 (COVID-19) mRNA BNT-162b2 vax 12/07/2020 Recorded influenza virus vaccine, inactivated 05/08/2020 Recorded influenza virus vaccine, inactivated 07/08/2019 Recorded influenza virus vaccine, inactivated 06/29/2018 Recorded influenza virus vaccine, inactivated 07/02/2017 RecordedNormalCleveland Clinic FoundationComment on above:Result Comment: Electronically Signed By: GERBER WINN CNP\Date and Time Signed: 03/13/25 10:21 EDT.Interpretation:on [id number]:CommentInvalid Interpretation [facility] HospitalComment on above:Result Comment: Not infected with HCV unless early or acute infection is suspected (which may be delayed in an immunocompromised individual), or other evidence exists to indicate HCV infection. Performed at: [facility] [address], [place] [id number] PhD Jed Cuadraformed By: #### [id number] ####[facility] [address] [place], [place]HCV Antibody RFX to Quant PCRon [id number] AbNon-ReactiveInvalid Interpretation CodeNon Reactive [facility] FoundationComment on above:Result Comment: Performed at: [facility] [address], [place] [id number] PhD Jed Cuadraformed By: #### [id number] #### [facility] [address] [place], [place] [address]Tlpgojxxsc Visit Summaryon [id number] Visit Summary Ambulatory Visit Summary MEGAN MARTINEZ :1960 Visit Date:02/14/2025 Ambulatory Visit Instructions Your Diagnosis History of recent fall Hypothyroidism BMI 33.0-33.9,adult Non-smoker Your Care Team Attending Physician - Jenifer Dotson Primary Care Physician - Jenifer Dotson This Is Your Medications List atorvastatin (atorvastatin 20 mg Tab) levothyroxine (levothyroxine 25 mcg (0.025 mg) Tab) Procedures Performed Colonoscopy (08/23/2020), Appendectomy, Cholecystectomy, Rotator cuff. Discharge Vitals Heart Rate (Peripheral) 92 Blood Pressure 120/74 Height 160 cm Height 63 in Weight 84.6 kg Weight 186.511 lb BMI 33.05 What to do next Scheduled Follow-Up Appointments Thursday2025 8:00 AM EDT Where: [place] [id number]- Medications What How Much When Instructions Unchanged atorvastatin (atorvastatin 20 mg Tab) See instructions TAKE 1 TABLET BY MOUTH EVERY DAY Unchanged levothyroxine (levothyroxine 25 mcg (0.025 mg) Tab) See instructions TAKE 1 TABLET BY MOUTH EVERY DAY Allergies No Known Allergies No Known Medication Allergies Problems Ongoing - Any problem that you are currently receiving treatment for. Acute urinary tract infection (bladder infection or UTI) BMI 32.0-32.9,adult Colon polyp Cough Exogenous obesity Fall in home Head injury Headache History of recent fall Hyperlipidemia Hypothyroidism Mitral valve prolapse Neck pain Non-smoker Right shoulder pain Sinusitis Urinary frequency Wellness examination Historical - Any problem that you are no longer receiving treatment for. BMI 30.0-30.9,adult BMI 31.0-31.9,adult Patient Survey You may receive a survey via text or e-mail asking about your office visit. Please share your experience with us by completing your survey. We appreciate your feedback and thank you for choosing us for your care. [facility] Medicine Office/Clinic Noteon [phone] Medicine Office/Clinic NoteFajosiah [facility] Medicine Office/Clinic Note Chief Complaint Yearly appt HPI Staff Patient is a 64 year old female presenting for yearly check up Had blood work done yesterday Health Maintenance: Colonoscopy: 2019 Dexa: Mammo: 02/09/24 Pap: Last Labs: 02/13/25 History of Present Illness pt presents today to go over labs that she had yesterday. Review of Systems PHQ Score Initial Depression Screen Score: 0 SCORE Physical Exam Vitals & Measurements HR: 92(Peripheral) BP: 120/74 SpO2: 95% HT: 63 in HT: 160 cm WT: 84.6 kg WT: 186.511 lb BMI: 33.05 General: alert, no acute distress ENMT: oral mucosa moist, no pharyngeal erythema or exudate Cardiovascular: regular rate and rhythm, normal peripheral perfusion Respiratory: Lungs CTA, respirations non labored Extremities: no deformity, no trauma Neurological: oriented x 4, LOC appropriate for age, CN II-XII intact, motor strength equal & normal bilaterally, speech normal Assessment/Plan 1. Hypothyroidism (E03.9: Hypothyroidism, unspecified) reviewed all labs. TSH WNL. refills sent in. pt denies need at this time. All questions answered. RTC 6 months Ordered: Thyroid Stimulating Hormone 2. Hyperlipidemia (E78.5: Hyperlipidemia, unspecified) cholesterol is improved will continue statin Ordered: Lipid Panel 3. BMI 33.0-33.9,adult (Z68.33: Body mass index [BMI] 33.0-33.9, adult) BMI education given 4. Non-smoker (Z78.9: Other specified health status) continue not smoking Orders: levothyroxine, See Instructions, TAKE 1 TABLET BY MOUTH EVERY DAY, # 90 tab(s), Refills(s) 5, Pharmacy: [id number], 160, cm, 01/30/25 8:12:00 EDT, Height/Length Dosing, 83.9, kg, 01/30/25 8:12:00 EDT, Weight Dosing levothyroxine, 25 mcg, Oral, Daily, # 90 tab(s), Refills(s) 5, Pharmacy: [facility]/pharmacy #[id number], 158.7,cm, 01/06/24 8:43:00 EDT, Height/Length Dosing, 77.4, kg, 01/06/24 8:43:00 EDT, Weight Dosing 1126F Pain severity quantified; no pain present Comprehensive Metabolic Panel Current tobacco non-user 1036F eGFR Medication list documented in medical record 1159F Most recent diastolic blood pressure <80 mm Hg 3078F Systolic BP <130 mm Hg (Most Recent) 3074F Follow-up No qualifying data available Problem List/Past Medical History Ongoing BMI 32.0-32.9,adult Colon polyp Exogenous obesity Hyperlipidemia Hypothyroidism Mitral valve prolapse Non-smoker Wellness examination Historical Acute urinary tract infection (bladder infection or UTI) BMI 30.0-30.9,adult BMI 31.0-31.9,adult Cough Fall in home Head injury Headache History of recent fall Neck pain Right shoulder pain Sinusitis Urinary frequency Procedure/Surgical History Colonoscopy (08/23/2020), Appendectomy, Cholecystectomy, Rotator cuff. Medications atorvastatin 20 mg Tab, See Instructions levothyroxine 25 mcg (0.025 mg) Tab, See Instructions Allergies No Known Allergies No Known Medication Allergies Social History Alcohol - Denies Alcohol Use, 02/01/2024 Never., 07/11/2024 Substance Abuse - Denies Substance Abuse, 06/19/2020 Never., 07/11/2024 Tobacco - Denies Tobacco Use, 06/19/2020 Never (less than 100 in lifetime) Tobacco Use:. Never Smokeless Tobacco Use:. Household tobacco concerns: No. Yes, 02/14/2025 Family History Family history is negative Immunizations Vaccine Date Status Comments influenza virus vaccine, inactivated 06/22/2024 Recorded influenza virus vaccine, inactivated 06/06/2023 Recorded influenza virus vaccine, inactivated 06/11/2022 Recorded SARS-CoV-2 (COVID-19) mRNAMUL.ORD![id number] 05/06/2022 Recorded 2023-08-19: TPV60 SARS-CoV-2 (COVID-19) mRNA BNT-162b2 vax 08/15/2021 Recorded 2023-08-19: TPV60 influenza virus vaccine, inactivated 05/30/2021 Recorded SARS-CoV-2 (COVID-19) mRNA BNT-162b2 vax 12/28/2020 Recorded SARS-CoV-2 (COVID-19) mRNA BNT-162b2 vax 12/07/2020 Recorded influenza virus vaccine, inactivated 05/08/2020 Recorded influenza virus vaccine, inactivated 07/08/2019 Recorded influenza virus vaccine, inactivated 06/29/2018 Recorded influenza virus vaccine, inactivated 07/02/2017 RecordedGlenbeigh HospitalComment on above:Result Comment: Electronically Signed By: Jenifer Dotson\.br\Date and Time Signed: 02/14/25 15:11 EDTPre-Visit Planningon [id number]-Visit PlanningPre-Visit Planning From: Raphael BUSTILLO, Ute To: Jenifer Dotson; Sent: 02/08/2025 13:13:54 EDT Subject: Pre-Visit Planning Due Date/Time: 02/08/2025 13:13:00 EDT Caller Name: MEGAN MARTINEZ; Caller Number: Julio , M Dmitriy Burgess, During a pre-visit planning chart review, I noted the following documentation in the medical record: Current Problem List: Acute urinary tract infection (10/18/2024), Colon polyp (07/11/2020), Cough, Fall in home, Head injury, Headache, Neck pain, Right shoulder pain, Sinusitis, Urinary frequency 08/20/2023 office note-3. Sinusitis (J32.9: Chronic sinusitis, unspecified) sinus tenderness and congestion, SMOOTH TM full of clear fluid. will order kenalog in office today. and antibiotic 01/06/2024 office note-1. Fall in home (W19.XXXA: Unspecified fall, initial encounter) pt had fall in her home 3 days ago. landed on the back of her head. area is tender to touch small amount of swelling noted. pt c/o headaches since the fall. as well as neck and shoulder tightness. will order CT [facility] brain to be done at [facility] 2. Head injury (S09.90XA: Unspecified injury of head, initial encounter) see above 3. Headache (R51.9: Headache, unspecified) pt having headaches since falling 07/11/2024 office note-1. Sinusitis (J32.9: Chronic sinusitis, unspecified) sinus tenderness and drainage. will send augmentin. flu and covid tests negative in office today 2. Cough (R05.9: Cough, unspecified) will send bromfed and medrol dose pack 09/09/2024 office note- 1. Urinary frequency (R35.0: Frequency of micturition) pt c/o UTI symptoms. u/a positive in office today. will send for culture. pt states Dr. Kulkarni always gave me Bactrim for my UTI's. will call with culture results. RTC as needed 11/15/2024 office note-2. Right shoulder pain (M25.511: Pain in right shoulder) pt landed on right shoulder about 2 weeks ago. 3. Neck pain (M54.2: Cervicalgia) neck has been hurting since her fall. Could you please update/remove any problems on the active problem list that have resolved, no longer current, not chronic, and/or remove duplicates? -Other (please specify): I can update the problem list with your specified response if you would like. In responding to this request, please exercise your independent professional judgment. The fact that a question is asked does not imply that any particular answer is desired or expected. If you have any questions, please feel free to contact me at extension [phone]. Thank you! Ute Lim, RIMMAN, RN, CCM, CCDS, CCDS-O CDI Medical Billing Coder [address] [address] P: [phone] F: [phone] [email or web address] From: Jenifer Dotson To: Ute Lim RN; Sent: 02/14/2025 08:38:26 EDT Subject: RE: Pre-Visit Planning Caller Name: JUANMEGAN Morgan; Caller Number: H , M I cleaned up the problem list. Anything else I need to do with her chart before I sign it off? From: Ute Lim RN To: Jenifer Dotson; Sent: 02/14/2025 14:29:27 EDT Subject: FW: Pre-Visit Planning Due Date/Time: 02/14/2025 14:29:00 EDT Caller Name: JUANMEGAN Morgan; Caller Number: Julio , M No, thank you for the clean up. Have a great day!Glenbeigh HospitalCHEMISTRYOrdered By: SYSTEM SYSTEM on [id number] [Mass/Vol]4.4 g/dL Normal3.3 - 5.0 gm/dLRemisol ChemAlbumin/Globulin [Mass ratio]1.6 {ratio}Normal 1.1 - 2.2Remisol ChemALP [Catalytic activity/Vol]84 [iU]/aWxmdof72 - 98 Int._Unit/LRemisol ChemALT No additional P-5'-P [Catalytic activity/Vol]12 [iU]/dNormal6 - 46 Int._Unit/LRemisol ChemAnion gap [Moles/Vol]10 mmol/LNormal6 - 16 mEq/LRemisol ChemAST [Catalytic activity/Vol]16 [iU]/dNormal5 - 43 Int._Unit/LRemisol ChemBilirubin [Mass/Vol]0.4 mg/dLNormal0.0 - 1.1 mg/dLRemisol ChemCalcium [Mass/Vol]9.2 mg/dLNormal8.9 - 11.1 mg/dLRemisol ChemChloride [Moles/Vol]105 mmol/EUhzwuf324 - 111 mmol/LRemisol ChemCholesterol [Mass/Vol]201 mg/tHQlxg790 - 200 mg/dLRemisol ChemCholesterol in HDL [Mass/Vol]41 mg/dL Invalid Interpretation CodeRemisol ChemComment on above:Result Comment: '>= 60 LOW RISK' '<= 40 HIGH RISK'Cholesterol in LDL [Mass/Vol]113 mg/dLNormal<=129mg/dLRemisol ChemCholesterol in VLDL [Mass/Vol]58 mg/dLHigh7 - 40 mg/dLRemisol ChemCO2 [Moles/Vol]28 mmol/QXlarwp64 - 31 mmol/LRemisol ChemCreatinine [Mass/Vol]0.7 mg/dLNormal0.5 - 1.3 mg/dLRemisol ChemGFR/1.73 sq M.predicted MDRD (S/P/Bld) [Vol rate/Area]95 mL/min/1.73 t1Pzawvv>=59mL/min/1.73 n7Wvyctbr ChemGlobulin (S) [Mass/Vol]2.7 g/dLNormal1.4 - 4.0 gm/dLRemisol ChemGlucose [Mass/Vol]95 mg/dL Nmritg35 - 199 mg/dLRemisol ChemPotassium [Moles/Vol]4.0 mmol/LNormal3.5 - 5.3 mmol/LRemisol ChemProtein [Mass/Vol]7.1 g/dLNormal6.0 - 7.8 gm/dLRemisol Chem Sodium [Moles/Vol]139 mmol/INqcapp778 - 145 mmol/LRemisol ChemTriglyceride [Mass/Vol]292 mg/dLHigh<=149mg/dLRemisol ChemTSH Qn2.76 m[IU]/LNormal0.34 - 5.60 mcIU/mLRemisol ChemUrea nitrogen [Mass/Vol]12 mg/dLNormal5 - 21 mg/dLRemisol ChemUrea nitrogen/Creatinine [Mass ratio]17 mg/gmZtattm31 - 20Remisol ChemCMPon 00-29-7792Ldiaxoh [Mass/Vol]4.4 g/dLNormal3.3-5.0[facility] Comment on above:Performed By: #### [id number] #### [facility] [address], [place] [address]Ucnmqcb/Globulin [Mass ratio]1.6 {ratio}Normal1.1-2.2FEast [place] Regional HospitalComment on above:Performed By: #### [id number] #### [facility] [address], [place] [address]Krd Phos84 Int._Unit/RKmrhka34-92EgqozhCleveland Clinic Foundation Comment on above:Performed By: #### [id number] #### [facility] [address], [place] [address]AYE31 Int._Unit/LNormal6-46[facility] FoundationComment on above:Performed By: #### [id number] #### [facility] [address], [place] [address]Zgcmi gap [Moles/Vol]10 mmol/LNormal6-16[facility] FoundationComment on above:Performed By: #### [id number] #### [facility] [address], [place] [address]HVJ59 Int._Unit/LNormal5-43[facility] FoundationComment on above:Performed By: #### [id number] #### [facility] [address], [place] [address]Mjqp Total0.4 mg/dLNormal0.0-1.1FEast [facility] Comment on above:Performed By: #### [id number] #### [facility] [address], [place] [address]GBA/Creat Ratio17 No MnkilSdprxu81-45YukwtcCleveland Clinic FoundationComment on above:Performed By: #### [id number] #### [facility] [address], [place] [address]Jzcocwi [Mass/Vol]9.2 mg/dLNormal8.9-11.1FEast [place] Regional HospitalComment on above:Performed By: #### [id number] #### [facility] [address], [place] [address]Hyyophoh [Moles/Vol]105 mmol/DDgrrfa174-585ThemwmCleveland Clinic FoundationComment on above:Performed By: #### [id number] #### [facility] [address], [place] [address]GZ0 [Moles/Vol]28 mmol/RIxjiux07-98MncabzCleveland Clinic Foundation Comment on above:Performed By: #### [id number] #### [facility] [address], [place] [address]Ljdqvxgzwy [Mass/Vol]0.7 mg/dLNormal0.5-1.3FEast [place] Regional HospitalComment on above:Performed By: #### [id number] #### [facility] [address], [place] [address]Ojaqmaja (S) [Mass/Vol]2.7 g/dLNormal1.4-4.0[facility] FoundationComment on above:Performed By: #### [id number] #### [facility] [address], [place] [address]Evlymte [Mass/Vol]95 mg/wFFostkj94-488FbzbztCleveland Clinic FoundationComment on above:Performed By: #### [id number] #### [facility] [address], [place] [address]Pufkwqlxk [Moles/Vol]4.0 mmol/LNormal3.5-5.3FEast [place] Regional HospitalComment on above:Performed By: #### [id number] #### [facility] [address] [place] [address]Ksekzng [Mass/Vol]7.1 g/dLNormal6.0-7.8[facility] FoundationComment on above:Performed By: #### [id number] #### [facility] [address] [place] [address]Rukisy [Moles/Vol]139 mmol/JNzhlsv469-413WcccmvCleveland Clinic FoundationComment on above:Performed By: #### [id number] #### [facility] [address] [place] [address]Qfpj nitrogen [Mass/Vol]12 mg/dLNormal5-21[facility] FoundationComment on above:Performed By: #### [id number] #### [facility] [address], [place] [address]Tqmpe Panelon 89-39-9186Tloiungdisw [Mass/Vol]201 mg/dLHigh 120-200[facility] FoundationComment on above:Performed By: #### [id number] #### [facility] [address] [place] [address]Ivnbdkwvnok in HDL [Mass/Vol]41 mg/dLInvalid Interpretation CodeCleveland Clinic FoundationComment on above:Result Comment: '>= 60 LOW RISK' '<= 40 HIGH RISK'Performed By: #### [id number] #### [facility] [address], [place] [address]Igwimxcyoqc in LDL [Mass/Vol]113 mg/dLNormal<=129[facility] FoundationComment on above:Performed By: #### [id number] #### [facility] [address], [place] [address]Astbcpgqngg in VLDL [Mass/Vol]58 mg/dLHigh7-40[facility] FoundationComment on above:Performed By: #### [id number] #### [facility] [address], [place] [address]Woszzpedzvkd [Mass/Vol]292 mg/dLHigh<=149[facility] FoundationComment on above:Performed By: #### [id number] #### [facility] [address], [place] [address]HVIiq 21-02-7876YBV Qn2.76 m[IU]/LNormal0.34-5.60[facility] FoundationComment on above:Performed By: #### [id number] #### [facility] [address], [place] [address]nFUFqs 92-18-1386jQTM61 mL/min/1.73 m7Hjwsrk>=59[facility] FoundationComment on above:Performed By: #### [id number] #### [facility] [address], [place] [address]Jyxwvezfez Visit Summaryon 02-92-4910Mozetrlpyr Visit Summary Ambulatory Visit Summary MARTINEZMEGAN Morgan :1960 Visit Date:01/30/2025 Ambulatory Visit Instructions Your Diagnosis Encounter for subsequent annual wellness visit (AWV) in Medicare patient Hyperlipidemia Hypothyroidism Screening for metabolic disorder Encounter for hepatitis C screening test for low risk patient Non-smoker Advanced directives, counseling/discussion Immunization declined Obesity due to excess calories Your Care Team Attending Physician - Jenifer Dotson Primary Care Physician - Jenifer Dotson This Is Your Medications List atorvastatin (atorvastatin 20 mg Tab) levothyroxine (levothyroxine 25 mcg (0.025 mg) Tab) Procedures Performed Colonoscopy (08/23/2020), Appendectomy, Cholecystectomy, Rotator cuff. Discharge Vitals Heart Rate (Peripheral) 89 Blood Pressure 124/62 Height 160 cm Height 63 in Weight 83.9 kg Weight 184.968 lb BMI 32.77 What to do next Scheduled Follow-Up Appointments Thursday 9:00 AM EDT With: Where: [address] [address] 2024 10:00 AM EDT With: Jenifer Dotson Where: [address] [address] Thursday2025 8:00 AM EDT With: Where: [address] [address]- You Need to Complete the Following Comprehensive Metabolic Panel, Blood, Routine collect, 01/30/25, Order for future visit, Lab Collect, Screening for metabolic disorder, Not Required, Print Label By Order Location HCV Antibody RFX to Quant PCR, Blood, Routine collect, 01/30/25, Order for future visit, Lab Collect, Encounter for hepatitis C screening test for low risk patient, Not Required, Print Label By OrderLocation Lipid Panel, Blood, Routine collect, 01/30/25, Order for future visit, Lab Collect, Hyperlipidemia,Required & Missing, Print Label By Order Location Thyroid Stimulating Hormone, Blood, Routine collect, 01/30/25, Order for future visit, Lab Collect,Hypothyroidism, Required & Missing, Print Label By Order Location Medications What How Much When Instructions Unchanged atorvastatin (atorvastatin 20 mg Tab) See instructions TAKE 1 TABLET BY MOUTH EVERY DAY Unchanged levothyroxine (levothyroxine 25 mcg (0.025 mg) Tab) 25 Microgram By Mouth Every day Allergies No Known Allergies No Known Medication Allergies Problems Ongoing - Any problem that you are currently receiving treatment for. Acute urinary tract infection (bladder infection or UTI) BMI 32.0-32.9,adult Colon polyp Cough Exogenous obesity Fall in home Head injury Headache History of recent fall Hyperlipidemia Hypothyroid Hypothyroidism Mitral valve prolapse Neck pain Non-smoker Right shoulder pain Sinusitis Urinary frequency Wellness examination Historical - Any problem that you are no longer receiving treatment for. BMI 30.0-30.9,adult BMI 31.0-31.9,adult Patient Survey You may receive a survey via text or e-mail asking about your office visit. Please share your experience with us by completing your survey. We appreciate your feedback and thank you for choosing us for your care. Education Materials Exercising to Lose Weight Getting regular exercise is important for everyone. It is especially important if you are overweight. Being overweight increases your risk of heart disease, stroke, diabetes, high blood pressure, andseveral types of cancer. Exercising, and reducing the calories you consume, can help you lose weight and improve fitness and health. Exercise can be moderate or vigorous intensity. To lose weight, most people need to do a certain amount of moderate or vigorous-intensity exercise each week. How can exercise affect me? You lose weight when you exercise enough to burn more calories than you eat. Exercise also reduces body fat and builds muscle. The more muscle you have, the more calories you burn. Exercise also: ??? Improves mood. ??? Reduces stress and tension. ??? Improves your overall fitness, flexibility, and endurance. ??? Increases bone strength. Moderate-intensity exercise Moderate-intensity exercise is any activity that gets you moving enough to burn at least three times more energy (calories) than if you were sitting. Examples of moderate exercise include: ??? Walking a mile in 15 minutes. ??? Doing light yard work. ??? Biking at an easy pace. Most people should get at least 150 minutes of moderate-intensity exercise a week to maintain theirbody weight. Vigorous-intensity exercise Vigorous-intensity exercise is any activity that gets you moving enough to burn at least six times more calories than if you were sitting. When you exercise at this intensity (more content not included)...[facility] Medicine Office/Clinic Noteon [id number] Medicine Office/Clinic NoteFajosiah b. [facility] Medicine Office/Clinic Note Chief Complaint Subsequent Medicare Wellness Review of Systems PHQ Score Initial Depression Screen Score: 0 SCORE Physical Exam Vitals & Measurements HR: 89(Peripheral) BP: 124/62 SpO2: 94% HT: 63 in HT: 160 cm WT: 83.9 kg WT: 184.968 lb BMI: 32.77 Assessment/Plan 1. Encounter for subsequent annual wellness visit (AWV) in Medicare patient (Z00.00: Encounter for general adult medical examination without abnormal findings) Patient in office today for her Subsequent Medicare Wellness Visit. A customized and personalized print out of all the current AHRQ USPSTF???s recommendations for preventative services and all current CDC recommended immunizations, relevant risk recommendations and the following patient brochures were given. Reviewed What can I expect during my Medicare preventative care visit CDC-Falls Prevention and home safety screening reviewed. Patient denies any falls in last 12 months, voices no worry about falling, exhibits no problems with sitting and standing. Pt voices understanding with keeping walk way area free of clutter to prevent tripping and/or falling. [place] Advance Directives reviewed, See #7. Patient denies any problems with ADL???s and Instrumental ADL???s. Cognitive screening completed with memory and clock face drawing. Immunization Record reviewed with the patient. Discussed Shingrix vaccine handout provided. 2 COVIDvaccines have been administered, 2 Boosters. Immunization record is up to date. Allergies and medications reviewed and up to date. Patient denies concerns with taking medication as prescribed, reviewed OTC medications with patient with medication list up to date. Blood tests were reviewed: Discussed what tests need to be updated. Labs were ordered per patient request, she will have completed at [facility] prior to next PCP visit. Colonoscopy up to date, last was 08/23/[address] oHrn, due for repeat 07/2027. DEXA scan is up to date, last was 06/18/2020. Repeat is due 05/2025. Last Mammogram was 02/09/2024,repeat will be due this 01/2025. Patient reports that she has appointment with Dr. Emerson, [employer] and he will order these tests. Reviewed concerns with bladder control over past 6 months with no concerns. Reviewed pain symptoms with patient: Patient denies pain today. Reviewed all outside providers that patient follows. Last visit summary notes available in chart and/or have been requested. Follow up scheduled: 02/09/2025 AWV has been scheduled: 01/31/2026 Medicare provides yearly screening for alcohol and depression concerns. This is completed during our Medicare wellness visit for those who do not have a current diagnosis of depression or concerns with alcohol use. I spent a total of (12) minutes on this date of service which included preparing to see the patient, face to face patient care, completing clinical documentation, obtaining and/or reviewing separately obtained history, counseling and educating the patient with handouts. Explanations were provided with reviewing questionnaires. AUDIT risk assessment screening completed, risk score(0) with patient denying concerns with use. Completed PHQ-2 risk assessment for depression with risk score(0), negative findings. Patient has been reminded to notify the provider if there would be a change or concerns with symptoms with fear, unable to sleep, worrying too much or feeling down and/or sad with lost of interest with daily activities. Will continue to monitor with screening yearly during Medicare wellness visits. 2. Hyperlipidemia (E78.5: Hyperlipidemia, unspecified) Reviewed healthy lifestyle with low fat diet and exercise regimen. When you are overweight our bodyproduces more lipids. Risk also increases with family history of hyperlipidemia and with monitoringalcohol use and avoid smoking. Pt voices understanding with importance of monitoring dietary intaketo reduce risk factors associated with CVA. Taking statin medications daily as directed. Will continue to follow up with office visits with updated labs as directed. LIPID Panel ordered. 3. Hypothyroidism (E03.9: Hypothyroidism, unspecified) Patient taking Levothyroxine daily as directed, taking in am on an empty stomach and 30 minutes before eating or taking other medications. Denies concerns with cold intolerance, or change inappetite, constipation, slow growing hair or hair thinning. Follows up with PCP during office visits with blood work and medication management. TSH Ordered. 4. Screening for metabolic disorder (Z13.228: Encounter for screening for other metabolic disorders) CMP ordered. 5. Encounter for hepatitis C screening test for low risk patient (Z11.59: Encounter for screening for other viral diseases) Discussed with patient the risk of Hepatitis C for people born between 1945- 1965. Handout CDC-Hepatitis C given. Patient to have labs drawn for Hepatitis C screening based on year of . Will follow up with PCP at next appointment. Hep (more content not included)...[facility] HospitalComment on above:Result Comment: Electronically Signed By: Jenifer Dotson\.br\Date and Time Signed: 01/30/25 10:52 EDT\.br\Electronically Co-Signed By: Samia Gage.hardeep\Date and Time Co-Signed: 01/30/25 10:01 EDTAmbulatory Visit Summaryon [id number] Visit SummaryAmbulatory Visit Summary MEGAN MARTINEZ :1960 Visit Date:11/15/2024 Ambulatory Visit Instructions Your Diagnosis History of recent fall Right shoulder pain Your Care Team Attending Physician - Jenifer Dotson Primary Care Physician - Jenifer Dotson This Is Your Medications List atorvastatin (atorvastatin 20 mg Tab) brompheniramine/dextromethorphan/PSE (Bromfed DM oral syrup) levothyroxine (levothyroxine 25 mcg (0.025 mg) Tab) Procedures Performed Appendectomy, Cholecystectomy, Rotator cuff. Discharge Vitals Temperature (Oral) 36.2 ???C Heart Rate (Peripheral) 90 Respiratory Rate 20 Blood Pressure 124/86 Height 160.0 cm Height 63 in Weight 81.7 kg Weight 180.117 lb BMI 31.91 What to do next Scheduled Follow-Up Appointments Thursday 8:00 AM EDT Where: [place] [id number]- Medications What How Much When Instructions Unchanged atorvastatin (atorvastatin 20 mg Tab) See instructions TAKE 1 TABLET BY MOUTH EVERY DAY Unchanged brompheniramine/ dextromethorphan/ PSE (Bromfed DM oral syrup) 5 Milliliter By Mouth 4 times a day Unchanged levothyroxine (levothyroxine 25 mcg (0.025 mg) Tab) 25 Microgram By Mouth Every day Allergies No Known Allergies No Known Medication Allergies Problems Ongoing - Any problem that you are currently receiving treatment for. Acute urinary tract infection (bladder infection or UTI) BMI 30.0-30.9,adult BMI 31.0-31.9,adult Colon polyp Cough Exogenous obesity Fall in home Head injury Headache History of recent fall Hyperlipidemia Hypothyroid Hypothyroidism Mitral valve prolapse Non-smoker Right shoulder pain Sinusitis Urinary frequency Wellness examination Patient Survey You may receive a survey via text or e-mail asking about your office visit. Please share your experience with us by completing your survey. We appreciate your feedback and thank you for choosing us for your care. [facility] Medicine Office/Clinic Noteon [phone] Medicine Office/Clinic Note[facility] Office/Clinic Note HPI Staff Megan is a 64 year old female presenting with right shoulder pain Pain characteristics: Onset: 2 weeks ago Pain location right shoulder Medication used: Ibuprofen Stepped over board and land right side she said it feels like something is pinched in there, and tingling History of Present Illness pt presents 2 weeks after a fall c/o right shoulder and neck pain Review of Systems PHQ Score Initial Depression Screen Score: 0 SCORE Physical Exam Vitals & Measurements T: 36.2 ???C(Oral) HR: 90(Peripheral) RR: 20 BP: 124/86 SpO2: 97% HT: 160.0 cm HT: 63 in WT: 81.7 kg WT: 180.117 lb BMI: 31.91 General: alert, no acute distress ENMT: oral mucosa moist, no pharyngeal erythema or exudate Cardiovascular: regular rate and rhythm, normal peripheral perfusion Respiratory: Lungs CTA, respirations non labored Extremities: no deformity, no trauma Neurological: oriented x 4, LOC appropriate for age, CN II-XII intact, motor strength equal & normal bilaterally, speech normal limited ROM greater that 90 degrees above her head due to pain Assessment/Plan 1. History of recent fall (Z91.81: History of falling) pt fell about 2 weeks ago and landed on her right shoulder. has been trying to nurse it herself butit is still painful. will order x rays and anti inflammatory as well as steroid. RTC 2 weeks if no improvement will order MRI Ordered: meloxicam, 15 mg = 1 tab(s), Oral, Daily, # 30 tab(s), Refills(s) 0, [facility]acy: [id number], 160, cm, 11/15/24 11:59:00 EDT, Height/Length Dosing, 81.7, kg, 11/15/24 11:59:00 EDT, Weight Dosing methylPREDNISolone, = 1 packet(s), Oral, Once, as directed on package labeling, # 21 tab(s), Refills(s) 0, Pharmacy: [id number], 160, cm, 11/15/24 11:59:00 EDT, Height/Length Dosing, 81.7, kg, 11/15/24 11:59:00 EDT, Weight Dosing 2. Right shoulder pain (M25.511: Pain in right shoulder) pt landed on right shoulder about 2 weeks ago. Ordered: meloxicam, 15 mg = 1 tab(s), Oral, Daily, # 30 tab(s), Refills(s) 0, Pharmacy: [facility]/pharmacy #[id number], 160, cm, 11/15/24 11:59:00 EDT, Height/Length Dosing, 81.7, kg, 11/15/24 11:59:00 EDT, Weight Dosing methylPREDNISolone, = 1 packet(s), Oral, Once, as directed on package labeling, # 21 tab(s), Refills(s) 0, Pharmacy: [facility]/pharmacy #[id number], 160, cm, 11/15/24 11:59:00 EDT, Height/Length Dosing, 81.7, kg, 11/15/24 11:59:00 EDT, Weight Dosing 3. Neck pain (M54.2: Cervicalgia) neck has been hurting since her fall. Ordered: meloxicam, 15 mg = 1 tab(s), Oral, Daily, # 30 tab(s), Refills(s) 0, Pharmacy: [facility]/pharmacy #[id number], 160, cm, 11/15/24 11:59:00 EDT, Height/Length Dosing, 81.7, kg, 11/15/24 11:59:00 EDT, Weight Dosing methylPREDNISolone, = 1 packet(s), Oral, Once, as directed on package labeling, # 21 tab(s), Refills(s) 0, [id number], cm, 11/15/24 11:59:00 EDT, Height/Length Dosing, 81.7, kg, 11/15/24 11:59:00 EDT, Weight Dosing 4. BMI 31.0-31.9,adult (Z68.31: Body mass index [BMI] 31.0-31.9, adult) BMI education given Follow-up No qualifying data available Problem List/Past Medical History Ongoing Acute urinary tract infection (bladder infection or UTI) BMI 30.0-30.9,adult BMI 31.0-31.9,adult Colon polyp Cough Exogenous obesity Fall in home Head injury Headache History of recent fall Hyperlipidemia Hypothyroid Hypothyroidism Mitral valve prolapse Neck pain Non-smoker Right shoulder pain Sinusitis Urinary frequency Wellness examination Historical No qualifying data Procedure/Surgical History Appendectomy, Cholecystectomy, Rotator cuff. Medications atorvastatin 20 mg Tab, See Instructions Bromfed DM oral syrup, 5 mL, Oral, QID levothyroxine 25 mcg (0.025 mg) Tab, 25 mcg, Oral, Daily, 5 refills Medrol Dosepack 4 mg Tab, 1 packet(s), Oral, Once meloxicam 15 mg Tab, 15 mg= 1 tab(s), Oral, Daily Allergies No Known Allergies No Known Medication Allergies Social History Alcohol - Denies Alcohol Use, 02/01/2024 Never., 07/11/2024 Substance Abuse - Denies Substance Abuse, 06/19/2020 Never., 07/11/2024 Tobacco - Denies Tobacco Use, 06/19/2020 Never (less than 100 in lifetime) Tobacco Use:. Never Smokeless Tobacco Use:. Household tobacco concerns: No. Yes, 11/15/2024 Family History Family history is negative Immunizations Vaccine Date Status Comments influenza virus vaccine, inactivated 06/06/2023 Recorded influenza virus vaccine, inactivated 06/11/2022 Recorded SARS-CoV-2 (COVID-19) [id number] 05/06/2022 Recorded 2023-08-19: TPV60 SARS-CoV-2 (COVID-19) mRNA BNT-162b2 vax 08/15/2021 Recorded 2023-08-19: TPV60 influenza virus vaccine, inactivated 05/30/2021 Recorded SARS-CoV-2 (COVID-19) mRNA BNT-162b2 vax 12/28/2020 Recorded SARS-CoV-2 (COVID-19) mRNA BNT-162b2 vax 12/07/2020 Recorded influenza virus vaccine, inactivated 05/08/2020 Recorded influenza virus vaccine, inactivated 07/08/2019 Recorded (more content not included)...[facility] HospitalComment on above: Result Comment: Electronically Signed By: Jenifer Dotson\.br\Date and Time Signed: 11/15/24 14:17 EDTAmbulatory Visit Summaryon [id number] Visit SummaryAmbulatory Visit Summary MEGAN MARTINEZ :1960 Visit Date:10/18/2024 Ambulatory Visit Instructions Your Diagnosis Non-smoker BMI 31.0-31.9,adult Exogenous obesity Your Care Team Attending Physician - GERBER WINN CNP Primary Care Physician - Jenifer Dotson This Is Your Medications List atorvastatin (atorvastatin 20 mg Tab) brompheniramine/dextromethorphan/PSE (Bromfed DM oral syrup) levothyroxine (levothyroxine 25 mcg (0.025 mg) Tab) Procedures Performed Appendectomy, Cholecystectomy, Rotator cuff. Discharge Vitals Temperature (Oral) 36.5 ???C Heart Rate (Peripheral) 110 Respiratory Rate 20 Blood Pressure 116/80 Height 160.0 cm Height 63 in Weight 81.7 kg Weight 180.117 lb BMI 31.91 What to do next Scheduled Follow-Up Appointments Thursday 8:00 AM EDT Where: [place] [phone]- Medications What How Much When Instructions New brompheniramine/ dextromethorphan/ PSE (Bromfed DM oral syrup) 5 Milliliter By Mouth 4 times a day Unchanged atorvastatin (atorvastatin 20 mg Tab) See instructions TAKE 1 TABLET BY MOUTH EVERY DAY Unchanged levothyroxine (levothyroxine 25 mcg (0.025 mg) Tab) 25 Microgram By Mouth Every day Allergies No Known Allergies No Known Medication Allergies Problems Ongoing - Any problem that you are currently receiving treatment for. Acute urinary tract infection (bladder infection or UTI) BMI 30.0-30.9,adult BMI 31.0-31.9,adult Colon polyp Cough Fall in home Head injury Headache Hyperlipidemia Hypothyroid Hypothyroidism Mitral valve prolapse Sinusitis Urinary frequency Wellness examination Patient Survey You may receive a survey via text or e-mail asking about your office visit. Please share your experience with us by completing your survey. We appreciate your feedback and thank you for choosing us for your care. [facility] Medicine Office/Clinic Noteon [phone] Medicine Office/Clinic NoteFajosiah b. thomas hospital Medicine Office/Clinic Note Chief Complaint The patient presents with a sore throat and persistent cough. HPI Staff Megan is a 64 year old female presenting with sore throat, cough and fatigue onset started Thursday sinus congestion- yes swollen nodes- red/ white spots- fever/chills- no body aches- no nausea/ vomiting- no cough- yes ear pain ithcy both allergies- hay fever allergies medication taken- DayQuil and claudia seltzer - did not help COVID tested- NEG STREP tested- NEG History of Present Illness 64-year-old female patient of MEGAN Genao presenting with a sore throat and cough. The symptoms began two days prior to the visit, on a Thursday. The patient describes the cough as persistent and reports that it leads to chest discomfort and itchy ears. She initially attempted to alleviate the symptoms using an [id number] throat spray, Chloraseptic, applied a couple of times daily, and Delsym for the cough, which was used on the day of the visit without any relief noted. COVID-19 and strep tests were performed and returned negative, indicating a likely viral origin. The patient denies any fever or vomiting. She reports not being exposed to anyone sick recently. The patient has had a flu shot, although she acknowledges understanding this does not entirely prevent flu infection. Thereis no reported sinus infection, and the patient has not been taking any other medications for her current symptoms. The patient maintains her routine thyroid medication for existing conditions. Review of Systems PHQ Score Initial Depression Screen Score: 0 SCORE - ENT: Reports persistent sore throat, occasional itchy ears. - Respiratory: Reports persistent cough and chest discomfort. - General: Denies fever, denies vomiting. Physical Exam Vitals & Measurements T: 36.5 ???C(Oral) HR: 110(Peripheral) RR: 20 BP: 116/80 SpO2: 97% HT: 63 in HT: 160.0 cm WT: 81.7 kg WT: 180.117 lb BMI: 31.91 General: alert, no acute distress ENMT: Excess cerumen in hte auditory canals; yes mild pharyngeal erythema or exudate Cardiovascular: regular rate and rhythm, normal peripheral perfusion Respiratory: Lungs CTA, respirations non labored Extremities: no deformity, no trauma Neurological: oriented x 4, LOC appropriate for age speech normal - Ears- Presence of excess wax noted. Assessment/Plan 1. Viral upper respiratory infection (J06.9: Acute upper respiratory infection, unspecified) Considering the negative results for COVID-19 and strep, along with the current symptomatology, I suspect a viral upper respiratory infection. It was recommended to use ear wax removal drops for the itchy ears along with a saline gargle for the throat irritation. For symptomatic cough relief, Tessalon Perles was prescribed to be taken every eight hours as needed. The patient is advised to maintain hydration and monitor symptoms. No antibiotics are warranted at this stage; the patient is instructed to follow up if symptoms persist beyond a week or escalate. Ordered: benzonatate, 100 mg = 1 cap(s), Oral, TID, X 7 day(s), # 21 cap(s), Refills(s) 0, Pharmacy: [facility]/pharmacy #[id number], 160, cm, 10/18/24 11:17:00 EST, Height/Length Dosing, 81.7, kg, 10/18/24 11:17:00 EST, Weight Dosing 2. Non-smoker (Z78.9: Other specified health status) The patient has no current or past history of smoking. This positive health behavior is acknowledged, and no further intervention is required. Ordered: Rapid COVID POC 68303 Rapid Strep POC 57538 3. BMI 31.0-31.9,adult (Z68.31: Body mass index [BMI] 31.0-31.9, adult) The patient's BMI indicates obesity. We discussed ongoing monitoring and management through dietarymodifications and lifestyle changes to address weight management. Ordered: Rapid COVID POC 04255 Rapid Strep POC 40508 4. Exogenous obesity (E66.09: Other obesity due to excess calories) The patient is counseled on the impact of obesity due to excess caloric intake, and advised on lifestyle modifications focusing on balanced nutrition and regular physical activity. Ordered: Rapid COVID POC 89234 Rapid Strep POC 24827 Follow-up No qualifying data available Patient Education Upper Respiratory Infection, Adult, [id number]-Nhrm Problem List/Past Medical History Ongoing Acute urinary tract infection (bladder infection or UTI) BMI 30.0-30.9,adult BMI 31.0-31.9,adult Colon polyp Cough Exogenous obesity Fall in home Head injury Headache Hyperlipidemia Hypothyroid Hypothyroidism Mitral valve prolapse Non-smoker Sinusitis Urinary frequency Wellness examination Historical No qualifying data Procedure/Surgical History Appendectomy, Cholecystectomy, Rotator cuff. Medications atorvastatin 20 mg Tab, See Instructions Bromfed DM oral syrup, 5 mL, Oral, QID levothyroxine 25 mcg (0.025 mg) Tab, 25 mcg, Oral, Daily, 5 refills Tessalon 100 mg Cap, 100 mg= 1 cap(s), Oral, TID Allergies No Known Allergies No Known Med (more content not included)...[facility] Comment on above:Result Comment: Electronically Signed By: GERBER WINN CNP\uriel\Date and Time Signed: 10/18/24 11:40 ESTC Urineon [id number] identified Cx Nom (U)Microbiology PROCEDURE: Urine Culture [R1] SOURCE: U CleanCatch BODY SITE: COLLECTED DATE/TIME: 08/30/2024 13:51 EST RECEIVED DATE/TIME: 08/30/2024 17:28 EST START DATE/TIME: 08/30/2024 17:28 EST FREE TEXT SOURCE: Jenifer Dotson Jodi L FINAL REPORTS Final Report [] Verified Date/Time: 09/01/2024 11:14 EST <10,000 cfu/ml Mixed skin contaminants Performing Locations R1: [facility] performed at: [facility], [address] [place] [address], [facility] , , MjibofZibusvGlenbeigh HospitalComment on above:Performed By: #### [id number] #### [facility] [address] [place] [id number] Visit Summaryon [id number] Visit Summary Ambulatory Visit Summary JUAN MEGAN G :1960 Visit Date:08/30/2024 Ambulatory Visit Instructions Your Diagnosis Urinary frequency Your Care Team Attending Physician - Jenifer Dotson Primary Care Physician - Jenifer Dotson This Is Your Medications List atorvastatin (atorvastatin 20 mg Tab) levothyroxine (levothyroxine 25 mcg (0.025 mg) Tab) Procedures Performed Appendectomy, Cholecystectomy, Rotator cuff. Discharge Vitals Heart Rate (Peripheral) 80 Respiratory Rate 18 Blood Pressure 120/72 Height 160.0 cm Height 63 in Weight 82.71 kg Weight 182.344 lb BMI 32.31 What to do next Scheduled Follow-Up Appointments Thursday 8:00 AM EDT Where: [address] [address]- Medications What How Much When Instructions Unchanged atorvastatin (atorvastatin 20 mg Tab) See instructions TAKE 1 TABLET BY MOUTH EVERY DAY Unchanged levothyroxine (levothyroxine 25 mcg (0.025 mg) Tab) 25 Microgram By Mouth Every day Allergies No Known Allergies No Known Medication Allergies Problems Ongoing - Any problem that you are currently receiving treatment for. BMI 30.0-30.9,adult BMI 31.0-31.9,adult Colon polyp Cough Fall in home Head injury Headache Hyperlipidemia Hypothyroid Hypothyroidism Mitral valve prolapse Sinusitis Urinary frequency Wellness examination Patient Survey You may receive a survey via text or e-mail asking about your office visit. Please share your experience with us by completing your survey. We appreciate your feedback and thank you for choosing us for your care. [facility] Medicine Office/Clinic Noteon [id number] Medicine Office/Clinic NoteWestern [facility] Medicine Office/Clinic Note HPI Staff Megan is a 64 year old female presenting for acute visit Dysuria: Onset:1 day ago Symptoms: Frequency, burning OTC used: azo Last UTI: 1 year ago Hx of kidney stones: no UA in office documented in chart History of Present Illness PT PRESENTS TODAY WITH URINARY FREQUENCY Review of Systems PHQ Score Initial Depression Screen Score: 0 SCORE Physical Exam Vitals & Measurements HR: 80(Peripheral) RR: 18 BP: 120/72 SpO2: 98% HT: 63 in HT: 160.0 cm WT: 82.71 kg WT: 182.344 lb BMI: 32.31 General: alert, no acute distress ENMT: oral mucosa moist, no pharyngeal erythema or exudate Cardiovascular: regular rate and rhythm, normal peripheral perfusion Respiratory: Lungs CTA, respirations non labored Extremities: no deformity, no trauma Neurological: oriented x 4, LOC appropriate for age, CN II-XII intact, motor strength equal & normal bilaterally, speech normal Assessment/Plan 1. Urinary frequency (R35.0: Frequency of micturition) pt c/o UTI symptoms. u/a positive in office today. will send for culture. pt states Dr. Kulkarni always gave me Bactrim for my UTI's. will call with culture results. RTC as needed Ordered: sulfamethoxazole-trimethoprim, 1 tab(s), Oral, BID for 7 day(s), 14 tab(s), Refill(s) 0, [id number], 160, cm, 08/30/24 13:45:00 EST, Height/Length Dosing, 82.7, kg, 08/30/24 13:45:00 EST, Weight Dosing Urine Culture Urnls Dip Stick Auto w/o Microscopy POC 90204 2. BMI 31.0-31.9,adult (Z68.31: Body mass index [BMI] 31.0-31.9, adult) BMI education given Orders: brompheniramine/dextromethorphan/PSE, 5 mL, Oral, QID for cold symptoms, 200 mL, Refill(s) 0, [id number], 160, cm, 07/11/24 11:39:00 EST, Height/Length Dosing, 81.3, kg, 07/11/24 11:39:00 EST, Weight Dosing Follow-up No qualifying data available Problem List/Past Medical History Ongoing BMI 30.0-30.9,adult BMI 31.0-31.9,adult Colon polyp Cough Fall in home Head injury Headache Hyperlipidemia Hypothyroid Hypothyroidism Mitral valve prolapse Sinusitis Urinary frequency Wellness examination Historical No qualifying data Procedure/Surgical History Appendectomy, Cholecystectomy, Rotator cuff. Medications atorvastatin 20 mg Tab, See Instructions Bactrim D.S. 800 mg-160 mg Tab, 1 tab(s), Oral, BID levothyroxine 25 mcg (0.025 mg) Tab, 25 mcg, Oral, Daily, 5 refills Allergies No Known Allergies No Known Medication Allergies Social History Alcohol - Denies Alcohol Use, 02/01/2024 Never., 07/11/2024 Substance Abuse - Denies Substance Abuse, 06/19/2020 Never., 07/11/2024 Tobacco - Denies Tobacco Use, 06/19/2020 Never (less than 100 in lifetime) Tobacco Use:. Never Smokeless Tobacco Use:. Household tobacco concerns: No. Yes, 07/11/2024 Family History Family history is negative Immunizations Vaccine Date Status Comments influenza virus vaccine, inactivated 06/06/2023 Recorded influenza virus vaccine, inactivated 06/11/2022 Recorded SARS-CoV-2 (COVID-19) [id number].ORD![id number] 05/06/2022 Recorded 2023-08-19: TPV60 SARS-CoV-2 (COVID-19) mRNA BNT-162b2 vax 08/15/2021 Recorded 2023-08-19: TPV60 influenza virus vaccine, inactivated 05/30/2021 Recorded SARS-CoV-2 (COVID-19) mRNA BNT-162b2 vax 12/28/2020 Recorded SARS-CoV-2 (COVID-19) mRNA BNT-162b2 vax 12/07/2020 Recorded influenza virus vaccine, inactivated 05/08/2020 Recorded influenza virus vaccine, inactivated 07/08/2019 Recorded influenza virus vaccine, inactivated 06/29/2018 Recorded influenza virus vaccine, inactivated 07/02/2017 Recorded Lab Results Ambulatory Point of Care Results Bilirubin Urine Dipstick: Negative (08/30/24 13:47:00) Blood Urine Dipstick: Trace-intact (08/30/24 13:47:00) Glucose Urine Dipstick: Negative (08/30/24 13:47:00) Ketones Urine Dipstick: Negative (08/30/24 13:47:00) Leukocytes Urine Dipstick: 1+ Small (08/30/24 13:47:00) Nitrite Urine Dipstick: Positive (08/30/24 13:47:00) Protein Urine Dipstick: Negative (08/30/24 13:47:00) Specific [place] Urine Dipstick: 1.025 (08/30/24 13:47:00) Urine Appearance Urine Dipstick: Clear (08/30/24 13:47:00) Urine Color Urine Dipstick: Yellow (08/30/24 13:47:00) Urobilinogen Urine Dipstick: Normal 0.2-1 EU/dl (08/30/24 13:47:00) pH Urine Dipstick: 5.5 (08/30/24 13:47:00)[facility] Comment on above:Result Comment: Electronically Signed By: Jenifer Dotson\Date and Time Signed: 08/30/24 13:52 ESTAmbulatory Visit Summaryon [id number] Visit SummaryAmbulatory Visit Summary MEGAN MARTINEZ :1960 Visit Date:07/11/2024 Ambulatory Visit Instructions Your Care Team Attending Physician - Jenifer Dotson Primary Care Physician - Jeinfer Dotson This Is Your Medications List atorvastatin (atorvastatin 20 mg Tab) levothyroxine (levothyroxine 25 mcg (0.025 mg) Tab) Procedures Performed Appendectomy, Cholecystectomy, Rotator cuff. Discharge Vitals Temperature (Tympanic) 36.7 ???C Heart Rate (Peripheral) 100 Respiratory Rate 18 Blood Pressure 124/80 Height 160 cm Height 63 in Weight 81.35 kg Weight 179.346 lb BMI 31.78 What to do next Scheduled Follow-Up Appointments Thursday 8:00 AM EDT Where: [place] [id number]- Medications What How Much When Instructions Unchanged atorvastatin (atorvastatin 20 mg Tab) See instructions TAKE 1 TABLET BY MOUTH EVERY DAY Unchanged levothyroxine (levothyroxine 25 mcg (0.025 mg) Tab) 25 Microgram By Mouth Every day Allergies No Known Allergies No Known Medication Allergies Problems Ongoing - Any problem that you are currently receiving treatment for. BMI 30.0-30.9,adult Colon polyp Fall in home Head injury Headache Hyperlipidemia Hypothyroid Hypothyroidism Mitral valve prolapse Sinusitis Wellness examination Patient Survey You may receive a survey via text or e-mail asking about your office visit. Please share your experience with us by completing your survey. We appreciate your feedback and thank you for choosing us for your care. [facility] Medicine Office/Clinic Noteon [id number] Medicine Office/Cl[facility] Note[facility] Note Chief Complaint ACute Sick Visit HPI Staff Pt presents today for acute sick visit. Onset: 3 days ago Location: sore throat Characteristics:_dry cough Aggravated by: Relieved by: Chloraseptic spray & telson pearls Timing:_ Associated Symptoms:_cough History of Present Illness pt presents today with URI symports with fever Review of Systems PHQ Score Initial Depression Screen Score: 0 SCORE Physical Exam Vitals & Measurements T: 36.7 ???C(Tympanic) HR: 100(Peripheral) RR: 18 BP: 124/80 SpO2: 95% HT: 63 in HT: 160 cm WT: 81.35 kg WT: 179.346 lb BMI: 31.78 General: alert, no acute distress ENMT: oral mucosa moist, no pharyngeal erythema or exudate, SMOOTH TM full of fluid Cardiovascular: regular rate and rhythm, normal peripheral perfusion Respiratory: Lungs CTA, respirations non labored Extremities: no deformity, no trauma Neurological: oriented x 4, LOC appropriate for age, CN II-XII intact, motor strength equal & normal bilaterally, speech normal Assessment/Plan 1. Sinusitis (J32.9: Chronic sinusitis, unspecified) sinus tenderness and drainage. will send augmentin. flu and covid tests negative in office today 2. Cough (R05.9: Cough, unspecified) will send bromfed and medrol dose pack 3. BMI 31.0-31.9,adult (Z68.31: Body mass index [BMI] 31.0-31.9, adult) BMI education 4. Obesity due to excess calories (E66.09: Other obesity due to excess calories) see above Ordered: brompheniramine/dextromethorphan/PSE, 5 mL, Oral, QID for cold symptoms, 200 mL, Refill(s) 0, [id number], 160, cm, 07/11/24 11:39:00 EST, Height/Length Dosing, 81.3, kg, 07/11/24 11:39:00 EST, Weight Dosing methylPREDNISolone, = 1 packet(s), Oral, As Directed, as directed on package labeling, X 6 day(s), # 21 tab(s), Refills(s) 0, Pharmacy: [id number], 160, cm, 07/11/24 11:39:00 EST, Height/Length Dosing, 81.3, kg, 07/11/24 11:39:00 EST, Weight Dosing 5. Non-smoker (Z78.9: Other specified health status) continue not smoking Ordered: brompheniramine/dextromethorphan/PSE, 5 mL, Oral, QID for cold symptoms, 200 mL, Refill(s) 0, [id number], 160, cm, 07/11/24 11:39:00 EST, Height/Length Dosing, 81.3, kg, 07/11/24 11:39:00 EST, Weight Dosing methylPREDNISolone, = 1 packet(s), Oral, As Directed, as directed on package labeling, X 6 day(s), # 21 tab(s), Refills(s) 0, Pharmacy: [facility] #[id number], 160, cm, 07/11/24 11:39:00 EST, Height/Length Dosing, 81.3, kg, 07/11/24 11:39:00 EST, Weight Dosing Orders: amoxicillin-clavulanate, 1 tab(s), Oral, q12hr for 7 day(s), 14 tab(s), Refill(s) 0, [facility]/pharm[facility] #[id number], 160, cm, 07/11/24 11:39:00 EST, Height/Length Dosing, 81.3, kg, 07/11/24 11:39:00 EST, Weight Dosing Follow-up No qualifying data available Problem List/Past Medical History Ongoing BMI 30.0-30.9,adult BMI 31.0-31.9,adult Colon polyp Cough Fall in home Head injury Headache Hyperlipidemia Hypothyroid Hypothyroidism Mitral valve prolapse Sinusitis Wellness examination Historical No qualifying data Procedure/Surgical History Appendectomy, Cholecystectomy, Rotator cuff. Medications amoxicillin-clavulanate 875 mg-125 mg Tab, 1 tab(s), Oral, q12hr atorvastatin 20 mg Tab, See Instructions Bromfed DM oral syrup, 5 mL, Oral, QID, PRN levothyroxine 25 mcg (0.025 mg) Tab, 25 mcg, Oral, Daily, 5 refills Medrol 4 mg Tab, 1 packet(s), Oral, As Directed Allergies No Known Allergies No Known Medication Allergies Social History Alcohol - Denies Alcohol Use, 02/01/2024 Never., 07/11/2024 Substance Abuse - Denies Substance Abuse, 06/19/2020 Never., 07/11/2024 Tobacco - Denies Tobacco Use, 06/19/2020 Never (less than 100 in lifetime) Tobacco Use:. Never Smokeless Tobacco Use:. Household tobacco concerns: No. Yes, 07/11/2024 Family History Family history is negative Immunizations Vaccine Date Status Comments influenza virus vaccine, inactivated 06/06/2023 Recorded influenza virus vaccine, inactivated 06/11/2022 Recorded SARS-CoV-2 (COVID-19) [id number].[id number] 05/06/2022 Recorded 2023-08-19: TPV60 SARS-CoV-2 (COVID-19) mRNA BNT-162b2 vax 08/15/2021 Recorded 2023-08-19: TPV60 influenza virus vaccine, inactivated 05/30/2021 Recorded SARS-CoV-2 (COVID-19) mRNA BNT-162b2 vax 12/28/2020 Recorded SARS-CoV-2 (COVID-19) mRNA BNT-162b2 vax 12/07/2020 Recorded influenza virus vaccine, inactivated 05/08/2020 Recorded influenza virus vaccine, inactivated 07/08/2019 Recorded influenza virus vaccine, inactivated 06/29/2018 Recorded influenza virus vaccine, inactivated 07/02/2017 RecordedNormalCleveland Clinic FoundationComment on above:Result Comment: Electronically Signed By: Jenifer Dotson.hardeep\Date and Time Signed: 07/11/24 11:55 [facility] [id number] 02-23-2024 Cytology report Cyto stain Doc (Cvx/Vag)NoteInvalid Interpretation [facility] HospitalComment on above:Result Comment: TESTS RESULT FLAG UNITS REF RANGE LAB Clinician Provided Cytology Information Source.............Cervix No. of containers..01 ThinPrep Vial DIAGNOSIS: 01 NEGATIVE FOR INTRAEPITHELIAL LESION OR MALIGNANCY. Specimen adequacy: 01 Satisfactory for evaluation. Endocervical and/or squamous metaplastic cells (endocervical component) are present. Performed by: Cristine Zarco Cement Finisher Apprentice (ASCP) . 01 Note: Note 01 The Pap smear is a screening test designed to aid in the detection of premalignant and malignant conditions of the uterine cervix. It is not a diagnostic procedure and should not be used as the sole means of detecting cervical cancer. Both false-positive and false-negative reports do occur. Test Methodology: Note 01 This liquid based ThinPrep(R) pap test was screened with the use of an image guided system. FLAG LEGEND: L-Low Normal,H-High Normal,LL-Alert Low,HH-Alert High <-Panic Low,>-Panic High,A-Abnormal,AA-Critical Abnormal Performed at: [address] [id number] Gela Thornton MD, Ynefvqzjj By: #### [id number] #### [facility] [address] [place], [place] [address]PNB 16+18+31+33+35+39+45+51+52+56+58+59+66+68 DNA Probe+sig amp Ql (Cvx)NegativeInvalid Interpretation CodeNegativeCleveland Clinic Foundation Comment on above:Result Comment: This nucleic acid amplification test detects fourteen high-risk HPV types (16,18,31,33,35,39,45,51,52,56,58,59,66,68) without differentiation. Performed at: [address] [id number] MD Hillary Ren Performed at: =[address] [id number] MD Hillary RenPerformed By: #### [id number] #### [facility] [address] [place], [place] [address]X Urineon [id number] identified Cx Nom (U)Microbiology PROCEDURE: Urine Culture [R1] SOURCE: U Random BODY SITE: COLLECTED DATE/TIME: 02/19/2024 10:57 EDT RECEIVED DATE/TIME: 02/19/2024 18:31 EDT START DATE/TIME: 02/19/2024 18:31 EDT FREE TEXT SOURCE: TATUM CNP, GERBER WINN CNP, GERBER Esqueda FINAL REPORTS Final Report [] Verified Date/Time: 02/21/2024 11:10 EDT 1,000 cfu/ml Mixed skin contaminants Performing Locations R1: This test was performed at: [facility], [address] [place] [address], [id number] , , AtorvxYhzzruGlenbeigh HospitalComment on above:Performed By: #### [id number] #### [facility] [address] [place] [address]Cghdwu Medicine Office/Clinic Noteon [id number] Medicine Office/Clinic NoteFami Medicine Office/Clinic Note HPI Staff Megan is a 63 year old female presenting for UTI symptoms Dysuria: Onset: 1 day Symptoms: burning, throbbing, hesitancy OTC used: no Last UTI: 2 years ago Hx of kidney stones: no UA in office documented in chart Pt states Dr Kulkarni use to give her Bactrim and that worked well for her History of Present Illness Patient of Birgit MEGAN presents today for an acute visit to be evaluated for UTI.Patient states she woke up this AM and when she urinated she had burning at the end of her stream and spasms. She denies fever or blood in her urine. she reports she drinks plenty of water and she wipes from front to back. She states she has had UTI's in the past and this is how they would start. Review of Systems PHQ Score Initial Depression Screen Score: 0 SCORE Constitutional: no fever, no chills, no sweats, no weakness Skin: no Jaundice, no rash, no lesions, nopetechiae Respiratory: no shortness of breath, no cough, no orthopnea, no wheezing Cardiovascular: no chest pain, no palpitations, no edema Genitourinary: moderate dysuria, no hematuria, no discharge, no pain Psychiatric: no sleeping problems, no irritability, no mood swings/depression. Additional ROS info: Except as noted in the above Review of Systems and in the History of Present Illness all other systems have been reviewed and are negative or noncontributory. Physical Exam Vitals & Measurements T: 36.9 ?C(Tympanic) HR: 82(Peripheral) RR: 16 BP: 106/78 SpO2: 97% HT: 63 in HT: 160.0 cm WT: 77.4 kg WT: 170.28 lb BMI: 30.23 General: alert, no acute distress Skin: warm, dry Head: no trauma, normocephalic Neck: Trachea midline, no adenopathy, no tenderness Eye: normal conjunctiva, sclera clear Cardiovascular: regular rate and rhythm, normal peripheral perfusion Respiratory: Lungs CTA, respirations non labored Back: No tenderness, Normal ROM, Normal alignment. Extremities: no deformity, no trauma Neurological: oriented x 4, LOC appropriate for age speech normal Psychiatric: cooperative, affect appropriate for age, normal judgement, normal psychiatric thoughts. Assessment/Plan 1. Dysuria (R30.0: Dysuria) Discussed proper hygiene with patient Encouraged to increase fluids Start sulfamethoxazole-trimethoprim one tablet BID x 5 days Awaiting culture report F/U as needed Ordered: sulfamethoxazole-trimethoprim, 1 tab(s), Oral, BID for 5 day(s), 10 tab(s), Refill(s) 0, [id number], 160, cm, 02/19/24 10:00:00 EDT, Height/Length Dosing, 77.4, kg, 02/19/24 10:00:00 EDT, Weight Dosing Urine Culture Urnls Dip Stick Auto w/o Microscopy POC 83224 2. BMI 30.0-30.9,adult (Z68.30: Body mass index [BMI] 30.0-30.9, adult) The standard range for ages 18 and older is >=18.5 and < 25 kg/m2. Your BMI today was above this range, this falls in the overweight to obese category and there are medical benefits to weight loss. We can offer counselling, referral, and/or medical support in addressing this problem. Your BMIand weight management will be followed at subsequent visits. Ordered: Urnls Dip Stick Auto w/o Microscopy POC 49985 3. Non-smoker (Z78.9: Other specified health status) Encouraged to continue as a non-smoker. Ordered: Urnls Dip Stick Auto w/o Microscopy POC 77929 Follow-up No qualifying data available Patient Education Dysuria Problem List/Past Medical History Ongoing BMI 30.0-30.9,adult Colon polyp Fall in home Head injury Headache Hyperlipidemia Hypothyroid Hypothyroidism Mitral valve prolapse Sinusitis Wellness examination Historical No qualifying data Procedure/Surgical History Appendectomy, Cholecystectomy, Rotator cuff. Medications Bactrim D.S. 800 mg-160 mg Tab, 1 tab(s), Oral, BID levothyroxine 25 mcg (0.025 mg) Tab, 25 mcg, Oral, Daily, 5 refills Allergies No Known Allergies No Known Medication Allergies Social History Alcohol - Denies Alcohol Use, 02/01/2024 Substance Abuse - Denies Substance Abuse, 06/19/2020 Tobacco - Denies Tobacco Use, 06/19/2020 Never (less than 100 in lifetime) Tobacco Use:. Never Smokeless Tobacco Use:. Household tobacco concerns: No., 02/19/2024 Family History Family history is negative Immunizations Vaccine Date Status Comments influenza virus vaccine, inactivated 06/06/2023 Recorded influenza virus vaccine, inactivated 06/11/2022 Recorded SARS-CoV-2 (COVID-19) [id number].[id number] 05/06/2022 Recorded 2023-08-19: TPV60 SARS-CoV-2 (COVID-19) mRNA BNT-162b2 vax 08/15/2021 Recorded 2023-08-19: TPV60 influenza virus vaccine, inactivated 05/30/2021 Recorded SARS-CoV-2 (COVID-19) mRNA BNT-162b2 vax 12/28/2020 Recorded SARS-CoV-2 (COVID-19) mRNA BNT-162b2 vax 12/07/2020 Recorded influenza virus vaccine, inactivated 05/08/2020 Recorded influenza virus vaccine, inactivated 07/08/2019 Recorded influenza virus vaccine, inactivated 06/29/2018 Recorded influenza virus vaccine, inactivated 07/02/20 (more content not included)... [facility] HospitalComment on above:Result Comment: Electronically Signed By: GERBER WINN CNP\Devanbr\Date and Time Signed: 02/19/24 10:47 EDT Reminderson [id number] From: Jenifer Dotson To: [facility] - Clinical; Sent: 02/19/2024 11:33:11 EDT Show up: 02/19/2024 11:33:00 EDT Subject: Ambulatory Reminder Due Date/Time: 02/20/2024 11:32:00 EDT cholesterol and triglycerides are elevated should consider starting a statin. If she would like to do that I can send it to her preferred pharmacy Results: Date Result Name Ind Value Ref Range 02/18/2024 8:41 Chol ((H)) 256 mg/dL (120 - 200) 02/18/2024 8:41 Trig ((H)) 209 mg/dL ( - <=149) 02/18/2024 8:41 HDL 46 mg/dL 02/18/2024 8:41 LDL Direct ((H)) 171 mg/dL ( - <=129) 02/18/2024 8:41 VLDL ((H)) 42 mg/dL (7 - 40) From: Jennifer Stanton ([facility] - Clinical) To: Jenifer Dotson; Sent: 02/19/2024 14:28:16 EDT Show up: 02/19/2024 14:28:00 EDT Subject: RE: Ambulatory Reminder pt would like start a statin [facility]CHEMISTRYOrdered By: SYSTEM SYSTEM on [id number] [Mass/Vol]256 mg/yTVdwy700 - 200 mg/dLRemisol ChemCholesterol in HDL [Mass/Vol]46 mg/dLInvalid Interpretation CodeRemisol ChemComment on above:Result Comment: '>= 60 LOW RISK' '<= 40 HIGH RISK'Cholesterol in LDL [Mass/Vol]171 mg/dLHigh<=129mg/dLRemisol ChemCholesterol in VLDL [Mass/Vol]42 mg/dLHigh7 - 40 mg/dLRemisol Chem Triglyceride [Mass/Vol]209 mg/dLHigh<=149mg/dLRemisol ChemLipid Panelon [id number] [Mass/Vol]256 mg/fSRcqf450-334HzoyvrCleveland Clinic Foundation Comment on above:Performed By: #### [id number] #### [facility] [address] [place], [place] [address]Gbeaydgywme in HDL [Mass/Vol]46 mg/dLInvalid Interpretation CodeCleveland Clinic FoundationComment on above:Result Comment: '>= 60 LOW RISK' '<= 40 HIGH RISK'Performed By: #### [id number] #### [facility] [address] [place], [place] [address]Ragmfxskfrr in LDL [Mass/Vol]171 mg/dLHigh<=129C[facility] Clinic FoundationComment on above:Performed By: #### [id number] #### [facility] [address] [place], [place] [address]Zquaijnjuoq in VLDL [Mass/Vol]42 mg/dLHigh7-40C[facility] Clinic FoundationComment on above:Performed By: #### [id number] #### [facility] [address] [place], [place] [address]Gileyedjvhdn [Mass/Vol]209 mg/dLHigh<=149C[facility] Clinic FoundationComment on above:Performed By: #### [id number] #### [facility] [address] [place], [place] [address]LME [id number] 58-56-4264Jwmyqopagxqwl Body SiteCERVIXNormal [facility] Clinic FoundationComment on above:Performed By: #### [id number] #### [facility] [address] [place], [place] [address]Rbsaifobo Orderon [id number] Order [id number]#1.00TIFFNormalMercy Health Anderson Hospitalindertexas county memorial hospital [id number] From: Jenifer Dotson To: [facility] - Clinical; Sent: 02/15/2024 08:26:34 EDT Show up: 02/15/2024 08:27:00 EDT Subject: Ambulatory Reminder Due Date/Time: 02/16/2024 08:26:00 EDT Mammogram was negative Results: Date Result Type Result Name 02/14/2024 9:50 Radiology MA Mamm Screen w/CAD if perf and 3D Smooth Megan called and advised.[facility] HospitalMA Mamm Screen w/CAD if perf and 3D Bilon [id number] Mamm Screen w/CAD if perf and 3D BilExam Date/Time: 02/09/2024 13:18 EDT Reason for Exam: Z00.00;Screening Report IMPRESSION: BIRADS 1 NEGATIVE, NORMAL INTERVAL FOLLOW-UP Follow-up: 12 MONTH RECALL Density: Scattered tissue. Vascular calcifications: Absent. EXAM: MA Mamm Screen w/CAD if perf and 3D Smooth DATE: 02/09/2024 11:55 AM CLINICAL HISTORY: Screening, Z00.00. COMPARISONS: 11/05/2022 and 06/18/2020. TECHNIQUE: Routine full-field digital mammograms and 3D breast tomosynthesis were obtained of both breasts. FINDINGS: There are no developing densities, suspicious microcalcifications, or areas of architectural distortion identified on the current study. No significant changes are identified from the prior studies, given differences in technique and positioning. Dense Breast: No. CAD analysis was performed and used in the interpretation. Board Certified Radiologists. Accredited by the ACR and FDA. MAMMOGRAPHY IS VERY IMPORTANT TO YOUR HEALTH. THE CURRENT [employer] OF [employer] AND [employer] GUIDELINES RECOMMENDS ANNUAL MAMMOGRAPHY BEGINNING AT AGE 40. THIS FACILITY UTILIZES A REMINDER SYSTEM TO ENSURE ALL PATIENTS RECEIVE REMINDER NOTIFICATIONS AT THE APPROPRIATE TIME BASED ON THE RECOMMENDATIONS OF THIS EXAM. Report Ordering Provider: Jenifer Landry FINAL REPORT Dictated: 02/14/2024 9:47 am Jean-Claude Flores MD Signed (Electronic Signature): 02/14/2024 9:47 am Signed by: Jean-Claude Flores MD Transcribed by: ALYSSA Technologist: [facility] Assessment: BI-RADS Category 1-Negative Recommendation: Normal interval follow-upNormalCleveland Clinic Foundation Consent for Treatmenton [id number] for Treatment [id number]#1.00[facility] SHELBY HOSPITALFGlenbeigh HospitalCHEMISTRYOrdered By: SYSTEM SYSTEM on 55-96-7477Vonzjti [Mass/Vol]4.1 g/dL Normal3.3 - 5.0 gm/dLRemisol ChemAlbumin/Globulin [Mass ratio]1.4 {ratio}Normal 1.1 - 2.2Remisol ChemAlk Phos97 [iU]/hSaukmu12 - 98 Int._Unit/LRemisol HavaZAV59 [iU]/dNormal6 - 46 Int._Unit/LRemisol ChemAnion gap [Moles/Vol]13 mmol/LNormal6 - 16 mEq/LRemisol MwocQKV09 [iU]/dNormal5 - 43 Int._Unit/LRemisol ChemBili Total0.3 mg/dLNormal0.0 - 1.1 mg/dLRemisol ChemCalcium [Mass/Vol]8.9 mg/dLNormal 8.9 - 11.1 mg/dLRemisol ChemChloride [Moles/Vol]105 mmol/YIffhqy410 - 111 mmol/L Remisol ChemCholesterol [Mass/Vol]249 mg/zLUpmc588 - 200 mg/dLRemisol Chem Cholesterol in HDL [Mass/Vol]46 mg/dLInvalid Interpretation CodeRemisol Chem Comment on above:Result Comment: '>= 60 LOW RISK' '<= 40 HIGH RISK'Cholesterol in LDL [Mass/Vol]163 mg/dLHigh<=129mg/dLRemisol ChemCholesterol in VLDL [Mass/Vol]92 mg/dLHigh7 - 40 mg/dLRemisol ChemComment on above:Result Comment: 'UNABLE TO REPORT. TRIG > 400 mg/dl'CO2 [Moles/Vol]25 mmol/IAffgsh57 - 31 mmol/LRemisol ChemCreatinine [Mass/Vol]0.7 mg/dLNormal0.5 - 1.3 mg/dLRemisol ChemeGFRmL/min/1.73 i4Zytvea>=59mL/min/1.73 p5Bffzzkr Chem Globulin (S) [Mass/Vol]2.9 g/dLNormal1.4 - 4.0 gm/dLRemisol ChemGlucose [Mass/Vol]106 mg/gNYvklic98 - 199 mg/dLRemisol ChemPotassium [Moles/Vol]4.2 mmol/LNormal3.5 - 5.3 mmol/LRemisol ChemProtein [Mass/Vol]7.0 g/dLNormal6.0 - 7.8 gm/dLRemisol ChemSodium [Moles/Vol]139 mmol/VDignvg984 - 145 mmol/LRemisol ChemTriglyceride [Mass/Vol]461 mg/dLHigh<=149mg/dLRemisol ChemTSH Qn1.75 m[IU]/L Normal0.34 - 5.60 mcIU/mLRemisol ChemUrea nitrogen [Mass/Vol]16 mg/dLNormal5 - 21 mg/dLRemisol ChemUrea nitrogen/Creatinine [Mass ratio]23 mg/gjFjgk16 - 20 Remisol ChemHEMATOLOGYOrdered By: SYSTEM SYSTEM on 64-85-4984Bqpgcvxch/100 WBC (Bld)0.9 %Normal0.0 - 2.0 %FT HemeAutoSSBasophils/Leukocytes Auto (Bld) [Pure # fraction]0.1 E9/LNormal0.0 - 0.2 E9/LFTMC HemeAutoSSEosinophils/100 WBC (Bld) 2.7 %Normal0.0 - 8.0 %[facility] HemeAutoSSEosinophils/Leukocytes Auto (Bld) [Pure # fraction]0.2 E9/LNormal0.0 - 0.5 E9/LFTMC HemeAutoSSLymphocytes/100 WBC (Bld) 17.3 %Tkfwcl34.0 - 50.0 %FT HemeAutoSSLymphocytes/Leukocytes Auto (Bld) [Pure # fraction]1.1 E9/LNormal1.0 - 4.0 E9/LFTMC HemeAutoSSMonocytes/100 WBC (Bld)8.1 %Normal4.0 - 14.0 %FT HemeAutoSSMonocytes/Leukocytes Auto (Bld) [Pure # fraction]0.5 E9/LNormal0.2 - 1.0 E9/LFTMC HemeAutoSSNeutrophils/100 WBC (Bld) 71.0 %Wzgpgk33.0 - 75.0 %FT[facility] HemeAutoSSNeutrophils/Leukocytes Auto (Bld) [Pure # fraction]4.6 E9/LNormal2.0 - 7.5 E9/LFTMC HemeAutoSSHEMATOLOGYOrdered By: Marycarmen Van on 18-29-0610Krxxwyyyjpq distribution width (RBC) [Ratio]13.1 % Rqjqpr92.9 - 14.2 %[facility] HemeAutoSSHematocrit (Bld) [Volume fraction]45.3 %Normal 34.0 - 46.0 %[facility] HemeAutoSSHemoglobin (Bld) [Mass/Vol]15.4 g/eGCfbmwx57.0 - 16.0 gm/dLFTMC HemeAutoSSMCH (RBC) [Entitic mass]32.5 ykQvrylj80.0 - 34.0 pgFTMC HemeAutoSSMCHC (RBC) [Mass/Vol]34.0 g/tSVcvfff54.4 - 36.0 gm/dLFTMC HemeAutoSS MCV (RBC) [Entitic vol]95.7 mGFpgtii53.0 - 100.0 fLFTMC HemeAutoSSPlatelet mean volume (Bld) [Entitic vol]8.4 fLNormal6.4 - 10.8 fLFTMC HemeAutoSSPlatelets (Bld) [#/Vol]281.0 E9/AJlsyli479.0 - 500.0 E9/LFTMC HemeAutoSSRBC (Bld) [#/Vol] 4.7 E12/LNormal4.3 - 5.9 E12/LFTMC HemeAutoSSWBC corrected for nucl RBC Auto (Bld) [#/Vol]6.5 E9/LNormal4.0 - 11.0 E9/LFC HemeAutoSSUrinalysis - AUTOMATED on 36-41-4063Gecmtriqcl (U)amaysim Other Bilirubin Ql (U)LOVEThESIGN Other Color (U)[employer] Other Glucose Ql (U)LOVEThESIGN Other Hemoglobin Ql (U)traceNort [facility] Other Ketones Ql (U)netgativeNorth [facility]ungo Other Leukocyte esterase Test strip Ql (U)largeNort [facility] Other Nitrite Ql (U)PositiveBlue Island [facility] Other pH (U)6.0 [pH][facility] [employer] Other Protein Ql (U)NegativeBlue Island Mungo Other Specific gravity (U) [Rel density]1.020[place] [facility] Other Urobilinogen (U) [Mass/Vol]0.2 mg/dLBlue Island Mungo Other Urinalysis - AUTOMATEDBlue Island Mungo Other Urine Cultureon 73-81-9744Wwqck Culture>100,000Nort [facility] Other Urine Culture<16SusceptibleBlue Island Mungo Other Urine Culture<8/4SusceptibleCheckpoint [facility] Other Urine Culture>16ResistantBlue Island Mungo Other Urine Culture<4SusceptibleNoozarks community hospital [facility] Other Urine Kiybtec0ZrebhaszdolYtekv Mungo Other Urine Culture<2SusceptibleJun Group Mungo Other Urine Culture<1SusceptibleCheckpoint [facility]oz[facility] hospital [facility] Other Urine Culture<0.25SusceptibleJun Group [facility] Other Urine Culture<0.5SusceptibleJun Group [facility] Other Urine Culture<32SusceptibleNorth [facility] Other Urine Culture<0.5/9.5SusceptibleJun Group [facility] Other Urinalysis - AUTOMATEDon 73-83-6659Cusclztzgr (U) cloudyNorth Mungo Other Bilirubin Ql (U)smallBlue Island M[facility]o Other Color (U)orangeBlue Island Mungo Other Glucose Ql (U)100MGYouDo Other Hemoglobin Ql (U)NegativeBlue Island Mungo Other Ketones Ql (U)traceBlue Island [facility] Other Leukocyte esterase Test strip Ql (U)largeNCR Mungo Other Nitrite Ql (U)PositiveBlue Island [facility] Other pH (U)7.0 [pH][facility] Other Protein Ql (U)100mgNCR Mungo Other Specific gravity (U) [Rel density]1.015[place] [facility] Other Urobilinogen (U) [Mass/Vol]4.0 mg/dLBlue Island Mungo Other Urinalysis - AUTOMATEDYouDo Other Urine Cultureon 72-36-8275Agvvlyqq identified Cx Nom (U)[facility] Other Urine culture routineOrdered By: Marilyn Pastrana on 83-74-8224Sicslwlh identified Cx Nom (U)2 DaysKindred Hospital [facility]ima FREE T3on 39-82-8033NWAA T31.97 pg/mlLCritically low2.77-5.27The [facility] HospitalComment on above:Performed By: #### TSH, FT3 #### [facility] [address] [place] [address] Dr. Tee Hirsch T4on 72-95-7515Osqb T4 [Mass/Vol]0.95 ng/dLNormal0.78-2.19 [facility]Com[facility] on above:Performed By: #### FT4 #### [facility] [address] [place] [address] Dr. Tee Grimes 79-10-5394WMP2.068 uIU/mLNormal0.470-4.680[facility] HospitalComment on above:Performed By: #### TSH, FT3 #### [facility] [address] [place] [address] Dr. Tee De Oliveira [facility] HospitalComment on above: Result Comment: <0.34 UIU/ml HYPERTHYROID 0.34-5.60 UIU/ml EUTHYROID >5.60 UIU/ml HYPOTHYROIDPerformed By: #### TSH, FT3 #### [facility] [address] [place] [address] Dr. Tee Cobian Vital Signs Date TimeVital SignValuePerforming XsnzhdczoRixeitqn16-04-9897 11:18-0400Body tsaxqq234.75 cmJoadia Frantz PAYROLL DIRECTOR-C Work Phone: [phone] [place], [place] 6831610-12-2025 11:18-0400 Body mass index (BMI) [Ratio]34.2 kg/m2Jodi Frantz PAYROLL DIRECTOR-C Work Phone: [phone] [place], [place] 6831610-12-2025 11:18-0400 Body uyembdproil51.2 [degF]Jenifer Frantz PAYROLL DIRECTOR-C Work Phone: [phone] [place], [place] 6831610-12-2025 11:18-0400 Body rlxzuo62.18 kgJodi Frantz PAYROLL DIRECTOR-C Work Phone: [phone] [place], [place] 6831610-12-2025 11:18-0400 Diastolic blood ygatrysr62 mm[Hg]Jenifer Frantz PAYROLL DIRECTOR-C Work Phone: [phone] [place], [place] 0133810-12-2025 11:18-0400 Heart rate86 /minJodi Frantz PAYROLL DIRECTOR-C Work Phone: [phone] [place], [place] 0133810-12-2025 11:18-0400 Respiratory rate19 /minJodi Frantz PAYROLL DIRECTOR-C Work Phone: [phone] [place], [place] 0133810-12-2025 11:18-0400 SaO2% (BldA) [Mass fraction]98 %Jenifer Frantz PAYROLL DIRECTOR-C Work Phone: [phone] [place], [place] 0133810-12-2025 11:18-0400 Systolic blood qrjoyyaq213 mm[Hg]Jenifer Frantz PAYROLL DIRECTOR-C Work Phone: [phone] [place], [place] 0133808-23-2025 09:10-0400 Body iupnyd652.75 cmJodi Frantz PAYROLL DIRECTOR-C Work Phone: [phone] [place], [place] 0133808-23-2025 09:10-0400 Body mass index (BMI) [Ratio]33.5 kg/m2Jodi Frantz PAYROLL DIRECTOR-C Work Phone: [phone] [place], [place] 0133808-23-2025 09:10-0400 Body .36 kgJodi Frantz PAYROLL DIRECTOR-C Work Phone: [phone] [place], [place] 0133808-23-2025 09:10-0400 Diastolic blood bcmeyzqy78 mm[Hg]Jenifer Frantz PAYROLL DIRECTOR-C Work Phone: [phone] [place], [place] 0133808-23-2025 09:10-0400 Heart rate91 /minJodi Frantz PAYROLL DIRECTOR-C Work Phone: [phone] [place], [place] 0133808-23-2025 09:10-0400 Respiratory rate18 /minJodi Frantz PAYROLL DIRECTOR-C Work Phone: [phone] [place], [place] 0133808-23-2025 09:10-0400 SaO2% (BldA) [Mass fraction]94 %Jenifer Frantz PAYROLL DIRECTOR-C Work Phone: [phone] [place], [place] 0133808-23-2025 09:10-0400 Systolic blood itfsqunn811 mm[Hg]Jenifer Clemensab PAYROLL DIRECTOR-C Work Phone: [facility]10-16-2023 09:10-0400 Body qycjzh879.75 cmPjennifer Pastrana Other [facility] Other 10-16-2023 09:10-0400Body mass index (BMI) [Ratio] 29.69 kg/z7Hophqj Zeina Other [facility] Other 10-16-2023 09:10-0400Body dshhyfbcgoc22.7 [degF]Marilyn Zeina Other [facility] Other 10-16-2023 09:10-0400Body dzeevz04.84 kgPamela Zeina Other [facility] Other 10-16-2023 09:10-0400Respiratory rate18 /minKeanua Zeina Other [facility] Other 10-16-2023 09:10-3814PiM2% (BldA) [Mass fraction]94 % Marilyn Zeina Other [facility] Other 08-23-2023 09:50-0400Body tugkzd804.75 cmPamela Zeina Other [facility] Other 08-23-2023 09:50-0400Body mass index (BMI) [Ratio] 29.69 kg/k2Tftivq Zeina Other [facility] Other 08-23-2023 09:50-0400Body lmkeeoulmdj07.3 [degF]Marilyn Zeina Other [facility] Other 08-23-2023 09:50-0400Body .84 kgMarilyn Pastrana Other [facility] Other 08-23-2023 09:50-0400Diastolic blood antoysfn89 mm[Hg] Marilyn Zeina Other [facility] Other 08-23-2023 09:50-0400Respiratory rate18 /minMarilyn Pastrana Other [facility] Other 08-23-2023 09:50-4751PzI6% (BldA) [Mass fraction]93 % Marilyn Zeina Other [place] [facility] Other 08-23-2023 09:50-0400Systolic blood ganquigb760 mm[Hg] Marilyn Sternmond Other [facility] Other Encounters Encounter DateEncounter TypeCare ProviderFacilityStart: 47-50-8911florskbhbxBmlg L SchwabFacility:[facility] BellevueStart: 16-90-1879egzvbriscbUdol Shane Frantz Facility:[facility] BellevueStart: 06-30-2025 End: 75-33-3496swuaumpzkfOmhn L SchwabFacility:[facility] BellevueStart: 06-04-2025 End: 29-64-5433Ajtcccjr Gaston Herrera [facility] Work Phone: Start: 06-04-2025 End: 42-22-2879mfqojbdsdwVfbf Lynn Schwab PAYROLL DIRECTOR-C Work Phone: [facility] Work Phone: Start: 06-04-2025 End: 15-16-8425Czwczrq encounter procedureAzra Herrera [facility] Work Phone: Start: 05-18-2025 End: 45-49-8932ggqmeljfjpPVJ GERBER A LEHMANNFacility:FTMCStart: 05-18-2025 End: 97-94-0925hluqadihneLvzi L SchwabFacility:[facility] BellevueStart: 05-11-2025 End: 11-13-2441pzxxsjmhqyELXWCQ A LEHMANNFacility:FTMCStart: 04-20-2025 End: 32-55-7715nqyjntshwcPWFXHY A LEHMANNFacility:[facility] FM BellevueStart: 04-15-2025 End: 60-35-9535datntfysfeDddq Pavithra Landry PAYROLL DIRECTOR-C Work Phone: [facility] Work Phone: Start: 04-15-2025 End: 99-22-7798Czokhtd encounter procedureAzra Herrera [facility] Work Phone: Start: 04-14-2025 End: 07-30-6640psohlvsuzqIscgn D KastenFacility:FTMCStart: 03-13-2025 End: 96-62-3127udfqwslloaCOSRAR A LEHMANNFacility:[facility] BellevueStart: 02-14-2025 End: 06-36-2216bljeyqjjmnFasl L SchwabFacility:[facility] BellevueStart: 02-13-2025 End: 99-86-5354Uhw Drop offJodi L Frantz [facility] Start: 02-13-2025 End: 71-28-1953mrbvdukswrYyvt L SchwabFacility:FTMCStart: 02-09-2025 End: 60-17-8641upuhovdnaeEsyu L SchwabFacility:[facility] BellevueStart: 01-30-2025 End: 01-57-3231pjxcvousxvUxwi L SchwabFacility:[facility] BellevueStart: 11-15-2024 End: 77-42-1934tzppbriclhNnqb L SchwabFacility:[facility] BellevueStart: 10-18-2024 End: 89-43-5972lccljtnackDGLPBN A LEHMANNFacility:[facility] BellevueStart: 08-30-2024 End: 40-72-9617Ucs Drop offJodi L Frantz [facility] Start: 08-30-2024 End: 39-78-5980ddjfozrvmsHrus L SchwabFacility:FTMCStart: 07-11-2024 End: 43-88-5514jlnfbxgelqBoze L SchwabFacility:[facility] BellevueStart: 02-19-2024 End: 72-86-1463dtmslapsajKYGAOL A LEHMANNFacility:FTMCStart: 02-19-2024 End: 72-52-9172Fck Drop offSHELLY A TATUM [facility] Start: 02-19-2024 End: 90-46-8068zcsydmegfeUWRDON A LEHMANNFacility:[facility] BellevueStart: 02-18-2024 End: 24-74-4639Yfi Drop offJodi L Frantz [facility] Start: 02-18-2024 End: 71-26-1714zmcymwjtquYFC Jenifer L SchwabFacility:FTMCStart: 02-17-2024 End: 20-47-4924urpshnsfmbMultq D KastenFacility:FTMCStart: 02-17-2024 End: 89-38-8044Tlw Drop offJames D Ki [facility] Start: 02-09-2024 End: 51-10-8184suobeikxgkPnfr L SchwabFacility:FTMCStart: 02-09-2024 End: 41-76-1420Udlryrv encounter procedureJodi L Frantz [facility] Start: 08-20-2023 End: 39-75-0295Kqr Drop offJodi L Frantz [facility] Start: 22-64-4367Udmeiq outpatient visit 15 minutes Marilyncait McgeeG [facility] ClydeStart: 06-08-2023 End: 35-64-0197vciwuicodsUA-C Marilyn Pastrana Work Phone: [facility] Work Phone: Start: 06-08-2023 End: 28-33-7615Dmakzhvk ReferredNP-C Marilyn Pastrana Work Phone: [facility] [place] Work Phone: Start: 82-31-8647Ixytli outpatient new 20 minutes Marilyn McgeeG [facility]deStart: 04-15-2023 End: 97-50-5938snxegiakngEvmajq Dymond Other [place] [facility] Other Start: 04-15-2023 End: 49-83-6457Snhkteos ReferredNP-C Marilyn Zeina Work Phone: [facility] [place] Work Phone: Start: 11-05-2022 End: 09-96-0694Ypvcpsf encounter procedureLadarius Emerson [facility] Start: 10-22-2022 End: 91-19-2084Gan Drop offLadarius Emerson [facility] Start: 08-25-2021 End: 73-06-7818pbczuuuokoWX KIM E KNIGHTFacility:H3Pvwlq: 08-08-2021 End: 53-10-5377xftqqbwjbfGOBritt KULKARNIFacility:P7Kmqvs: 08-02-2021 End: 82-50-9943slkrdpagmwQK KIM E KNIGHTFacility:G7Iwoeq: 07-30-2021 End: 09-24-3228qnxjobvowhBA KIM E KNIGHTFacility:H1 Procedures DateProcedureProcedure DetailPerforming ClinicianStart: 06-08-2023 Piperacillin/tazobactamPamela Zeina Other Start: 60-98-5452Hszgl cultureNP-C Marilyn Pastrana Work Phone: Start: 17-92-5798DzyompaihyiVxyo Frantz AppendectomyJames Ki cholecystectomyJames Ki Rotator cuff including muscles and tendons (body structure)Jenifer Frantz Comment on above:calcium deposits removed Plan of Treatment DateCare ActivityDetailAuthorStart: 79-52-8650Etocq [facility] Hospitaltart: 10-40-0446Tauednlu identified in Urine by CultureUrine [facility] Hospitaltart: 30-06-6894Wtqwnjly identified in Urine by [facility]tart: 06-91-8143Tkvjmehp identified in Urine by CultureUrine [facility] Urine [facility] Immunizations Immunization DateImmunizationNotesCare MtjxiywmStncmvfk18-86-5868tqwndcupy virus vaccine, unspecified formulationJodi Frantz 020-9171Vpwphz-XjkwzTrinity Health System 85-36-7189yvzlujbsd virus vaccine, unspecified formulationJodi Frantz 625-3308Yataxt-KprldTrinity Health System 04-20-0683qibbeyxbi virus vaccine, unspecified formulationJodi Frantz 238-9424Xtzpjz-JrqlcTrinity Health System 40-42-9537KYKY-CoV-2 (COVID-19) mRNAMUL.ORD!n57342Znsl Frantz 811-3949Oynfjv-PodujTrinity Health System Comment on above:Result Comment: 2023-08-19: TOO2922-14-7623ARPZ-MkC-9 (COVID- 19) mRNA BNT-162b2 vaxJodi Frantz 997-6265Svxlfr-WiaywTrinity Health System Comment on above:Result Comment: 2023-08-19: HVU3290-03-3616lnzednooj virus vaccine, unspecified formulationJodi Frantz 556-6912Tmzjhv-BjctoTrinity Health System 84-36-3714GSNX-CoV-2 (COVID-19) mRNA BNT-162b2 vaxJodi Frantz 255-4280Grsevf-XwmcvTrinity Health System 32-21-9267AILN-CoV-2 (COVID-19) mRNA BNT-162b2 vaxJodi Frantz 838-7406Tqaeyp-TqislTrinity Health System 55-55-1761hlhxnajaq virus vaccine, unspecified formulationJodi Frantz 160-6499Smymsr-UrksnTrinity Health System 64-55-6289fbdstdswi virus vaccine, unspecified formulationJodi Frantz 137-4358Vjlrjk-HgfqrTrinity Health System 55-43-6484wbvvywljx virus vaccine, unspecified formulationJodi Frantz 165-9477Kpuuzg-LajrwTrinity Health System 34-30-2108tvtavitjf virus vaccine, unspecified formulationJodi Frantz 746-1711Itqmei-JoqlzTrinity Health System Payers DatePayer CategoryPayerPolicy ID2025Self-[id number] [id number] [id number] 2.16.840.1.261166.3.579.2.593 [id number] 2.16.840.1.789340.3.57[id number] 2.16.840.1.718999.3.57[id number] 2.16840.1.920013.3.57[id number] 2.16.840.1.899924.3.57[id number] 2.16.840.1.826566.3.579.2.[id number] 2.16.840.1.909464.3.579.[id number] 2.16.840.1.500133.3.57[id number] 2.16.840.1.455996.3.579.[id number] 2.16.840.1.471759.3.57[id number] 2.16.840.1.859070.3.57[id number] 2.16840.1.601286.3.57[id number] 2.16.840.1.376179.3.57[id number] 2.16.840.1.088338.3.57[id number] 2.16840.1.774106.3.57[id number] 2.16840.1.770861.3.57[id number] 2.16840.1.600609.3.57[id number] 2.840.1.154422.3.57[id number] 2.16840.1.930802.3.579.2.43626-82-0174Tsiimvw12683796 2.840.1.478237.3.579.[id number] 2.840.1.128542.3.579.2.[id number] 2.840.1.747438.3.579.[id number] 2.16840.1.651246.3.579.[id number] 2.16840.1.055164.3.579.2.10453-13-3608Yvjvmye25333645 2.16840.1.874074.3.579.2.[id number] 2.16840.1.942442.3.579.2.53993-24-3534Wbyicbg16066547 2..840.1.408790.3.579.2.21940-50-9086Evvxazj09213887 2.16.840.1.846331.3.579.[id number] 2..0.1.362010.3.57[id number] 2..840.1.64[id number] 2..0.1.856572.19Unknown [id number] 2..840.1.635965.3.579.2.531 Social History DateTypeDetailFacilityStart: 10-23-2018 End: 87-82-1795Tlaqsrs smoking statusNever smoked tobacco (finding)[facility] HospitalTobacco smoking statusNeLouis Stokes Cleveland VA Medical Centerex Assigned At [facility]oples Hospitaltart: 87-94-9011Oom Assigned At [facility] Troyexual OrientationWood County Hospital Start: 37-11-1243ZmaJwqxfp (finding)[facility] Clinical Notes 08-02-2021 to 06-30-2025 Note Date & YbujMdtwFfdwsqdu22-51-8133 NotePatient Education Orthopedics Plantar Fasciitis Plantar fasciitis is a painful foot condition that affects the heel. It occurs when the band of tissue that connects the toes to the heel bone (plantar fascia) becomes irritated. This can happen as the result of exercising too much or doing other repetitive activities (overuse injury). Plantar fasciitis can cause mild irritation to severe pain that makes it difficult to walk or move.The pain is usually worse in the morning after sleeping, or after sitting or lying down for a period of time. Pain may also be worse after long periods of walking or standing. What are the causes? This condition may be caused by: ??? Standing for long periods of time. ??? Wearing shoes that do not have good arch support. ??? Doing activities that put stress on joints (high-impact activities). This includes ballet and exercise that makes your heart beat faster (aerobic exercise), such as running. ??? Being overweight. ??? An abnormal way of walking (gait). ??? Tight muscles in the back of your lower leg (calf). ??? High arches in your feet or flat feet. ??? Starting a new athletic activity. What are the signs or symptoms? The main symptom of this condition is heel pain. Pain may get worse after the following: ??? Taking the first steps after a time of rest, especially in the morning after awakening, or after you have been sitting or lying down for a while. ??? Long periods of standing still. Pain may decrease after 30?45 minutes of activity, such as gentle walking. How is this diagnosed? This condition may be diagnosed based on your medical history, a physical exam, and your symptoms. Your health care provider will check for: ??? A tender area on the bottom of your foot. ??? A high arch in your foot or flat feet. ??? Pain when you move your foot. ??? Difficulty moving your foot. You may have imaging tests to confirm the diagnosis, such as: ??? X-rays. ??? Ultrasound. ??? MRI. How is this treated? Treatment for plantar fasciitis depends on how severe your condition is. Treatment may include: ??? Rest, ice, pressure (compression), and raising (elevating) the affected foot. This is called RICE therapy. Your health care provider may recommend RICE therapy along with jtud-xgi-jtutmkl pain medicines to manage your pain. ??? Exercises to stretch your calves and your plantar fascia. ??? A splint that holds your foot in a stretched, upward position while you sleep (night splint). ??? Physical therapy to relieve symptoms and prevent problems in the future. ??? Injections of steroid medicine (cortisone) to relieve pain and inflammation. ??? Stimulating your plantar fascia with electrical impulses (extracorporeal shock wave therapy). This is usually the last treatment option before surgery. ??? Surgery, if other treatments have not worked after 12 months. Follow these instructions at home: Managing pain, stiffness, and swelling ??? If directed, put ice on the painful area. To do this: ? Put ice in a plastic bag, or use a frozen bottle of water. ? Place a towel between your skin and the bag or bottle. ? Roll the bottom of your foot over the bag or bottle. ? Do this for 20 minutes, 2?3 times a day. ??? Wear athletic shoes that have air-sole or gel-sole cushions, or try soft shoe inserts that are designed for plantar fasciitis. ??? Elevate your foot above the level of your heart while you are sitting or lying down. Activity ??? Avoid activities that cause pain. Ask your health care provider what activities are safe for you. ??? Do physical therapy exercises and stretches as told by your health care provider. ??? Try activities and forms of exercise that are easier on your joints (low impact). Examples include swimming, water aerobics, and biking. General instructions ??? Take ydtt-rmg-kwyndoi and prescription medicines only as told by your health care provider. ??? Wear a night splint while sleeping, if told by your health care provider. Loosen the splint if your toes tingle, become numb, or turn cold and blue. ??? Maintain a healthy weight, or work with your health care provider to lose weight as needed. ??? Keep all follow-up visits. This is important. Contact a health care provider if you have: ??? Symptoms that do not go away with home treatment. ??? Pain that gets worse. ??? Pain that affects your ability to move or do daily activities. Summary ??? Plantar fasciitis is a painful foot condition that affects the heel. It occurs when the band oftissue that connects the toes to the heel bone (plantar fascia) becomes irritated. ??? Heel pain is the main symptom of this condition. It may get worse after exercising too much or standing still for a long time. ??? Treatment varies, but it usually starts with rest, ice, pressure (compression), and raising (elevating) the affected foot. This is called (more content not included)...[facility]09-25-2025 NoteNurse Consultation Note Reason for Visit Pt presents today to submit UA after abx tx for UTI. Assessment/Plan 1. UTI symptoms (R39.9: Unspecified symptoms and signs involving the genitourinary system) Medications levothyroxine 25 mcg (0.025 mg) Tab, See Instructions Macrodantin 100 mg oral capsule, 100 mg= 1 cap(s), Oral, QID Allergies No Known Allergies No Known Medication Allergies Immunizations Vaccine Date Status Comments influenza virus vaccine, inactivated 06/22/2024 Recorded influenza virus vaccine, inactivated 06/06/2023 Recorded influenza virus vaccine, inactivated 06/11/2022 Recorded SARS-CoV-2 (COVID-19) [id number] 05/06/2022 Recorded 2023-08-19: [id number] SARS-CoV-2 (COVID-19) mRNA BNT-162b2 vax 08/15/2021 Recorded 2023-08-19: [id number] influenza virus vaccine, inactivated 05/30/2021 Recorded SARS-CoV-2 (COVID-19) mRNA BNT-162b2 vax 12/28/2020 Recorded SARS-CoV-2 (COVID-19) mRNA BNT-162b2 vax 12/07/2020 Recorded influenza virus vaccine, inactivated 05/08/2020 Recorded influenza virus vaccine, inactivated 07/08/2019 Recorded influenza virus vaccine, inactivated 06/29/2018 Recorded influenza virus vaccine, inactivated 07/02/2017 Recorded Lab Results Ambulatory Point of Care Results Bilirubin Urine Dipstick: Negative (05/18/25 09:47:00) Blood Urine Dipstick: Trace-intact (05/18/25 09:47:00) Glucose Urine Dipstick: Negative (05/18/25 09:47:00) Ketones Urine Dipstick: Negative (05/18/25 09:47:00) Leukocytes Urine Dipstick: 3+ Large (05/18/25 09:47:00) Nitrite Urine Dipstick: Negative (05/18/25 09:47:00) Protein Urine Dipstick: Negative (05/18/25 09:47:00) Specific [place] Urine Dipstick: 1.015 (05/18/25 09:47:00) Urine Appearance Urine Dipstick: Clear (05/18/25 09:47:00) Urine Color Urine Dipstick: Yellow (05/18/25 09:47:00) Urobilinogen Urine Dipstick: Normal 0.2-1 EU/dl (05/18/25 09:47:00) pH Urine Dipstick: 7 (05/18/25 09:47:00) Urine specimen sent for repeat [facility] Patient Education Urology Dysuria Dysuria is pain or discomfort during urination. The pain or discomfort may be felt in the part of the body that drains urine from the bladder (urethra) or in the surrounding tissue of the genitals. The pain may also be felt in the groin area, lower abdomen, or lower back. You may have to urinate frequently or have the sudden feeling that you have to urinate (urgency). Dysuria can affect anyone, but it is more common in females. Dysuria can be caused by many different things, including: ??? Urinary tract infection. ??? Kidney stones or bladder stones. ??? Certain STIs (sexually transmitted infections), such as chlamydia. ??? Dehydration. ??? Inflammation of the tissues of the vagina. ??? Use of certain medicines. ??? Use of certain soaps or scented products that cause irritation. Follow these instructions at home: Medicines ??? Take ijio-zfo-phwjdnj and prescription medicines only as told by your health care provider. ??? If you were prescribed an antibiotic medicine, take it as told by your health care provider. Donot stop taking the antibiotic even if you start to feel better. Eating and drinking ??? Drink enough fluid to keep your urine pale yellow. ??? Avoid caffeinated beverages, tea, and alcohol. These beverages can irritate the bladder and make dysuria worse. In males, alcohol may irritate the prostate. General instructions ??? Watch your condition for any changes. ??? Urinate often. Avoid holding urine for long periods of time. ??? If you are female, you should wipe from front to back after urinating or having a bowel movement. Use each piece of toilet paper only once. ??? Empty your bladder after sex. ??? Keep all follow-up visits. This is important. ??? If you had any tests done to find the cause of dysuria, it is up to you to get your test results. Ask your health care provider, or the department that is doing the test, when your results will be ready. Contact a health care provider if: ??? You have a fever. ??? You develop pain in your back or sides. ??? You have nausea or vomiting. ??? You have blood in your urine. ??? You are not urinating as often as you usually do. Get help right away if: ??? Your pain is severe and not relieved with medicines. ??? You cannot eat or drink without vomiting. ??? You are confused. ??? You have a rapid heartbeat while resting. ??? You have shaking or chills. ??? You feel extremely weak. Summary ??? Dysuria is pain or discomfort while urinating. Many different conditions can lead to dysuria. ??? If you have dysuria, you may have to urinate frequently or have the sudden feeling that you have to urinate (urgency). ??? Watch your condition for any changes. Keep all follow-up visits. ??? Make sure that you urinate often and drink enough fluid to keep your urine pale yellow. This information is not intended to replace advice given to you by your health care provider. Make sure you discuss any questions you have with your health care provider. Document Revised: 03/22/2021 Document Reviewed: 03/22/2021 [employer] Patient Education ? 2023 [employer] 04-20-2025 NotePatient Education Dermatology Poison Francesca Dermatitis Poison francesca dermatitis is redness and soreness of the skin caused by chemicals in the leaves of the poison francesca plant. You may have very bad itching, swelling, a rash, and blisters. What are the causes? Touching a poison francesca plant. ??? Touching something that has the chemical on it. This may include animals or objects that have come in contact with the plant. What increases the risk? Going outdoors often in wooded or marshy areas. ??? Going outdoors without wearing protective clothing, such as closed shoes, long pants, and a long-sleeved shirt. What are the signs or symptoms? Skin redness. ??? Very bad itching. ??? A rash that often includes bumps and blisters. ? The rash usually appears 48 hours after exposure, if you have had it before. ? If this is the first time you have it, the rash may not appear until a week after exposure. ??? Swelling. This may occur if the reaction is very bad. Symptoms usually last for 1?2 weeks. The first time you get this condition, symptoms may last 3?4 weeks. How is this treated? This condition may be treated with: ??? Hydrocortisone cream or calamine lotion to relieve itching. ??? Oatmeal baths to soothe the skin. ??? Medicines, such as uwdj-ioa-kwpslna antihistamine tablets. ??? Oral steroid medicine for very bad reactions. Follow these instructions at home: Medicines ??? Take or apply lyna-nkp-htmohkf and prescription medicines only as told by your doctor. ??? Use hydrocortisone cream or calamine lotion as needed to help with itching. General instructions ??? Do not scratch or rub your skin. ??? Put a cold, wet cloth (cold compress) on the affected areas or take baths in cool water. This will help with itching. ??? Avoid hot baths and showers. ??? Take oatmeal baths as needed. Use colloidal oatmeal. You can get this at a pharmacy or grocery store. Follow the instructions on the package. ??? While you have the rash, wash your clothes right after you wear them. ??? Check the affected area every day for signs of infection. Check for: ? More redness, swelling, or pain. ? Fluid or blood. ? Warmth. ? Pus or a bad smell. ??? Keep all follow-up visits. Your doctor may want to see how your skin is doing with treatment. How is this prevented? Know what poison francesca looks like, so you can avoid it. ? This plant has three leaves with flowering branches on a single stem. ? The leaves are glossy. ? The leaves have uneven edges that come to a point. ??? If you touch poison francesca, wash your skin with soap and water right away. Be sure to wash under your fingernails. ??? When hiking or camping, wear long pants, a long-sleeved shirt, long socks, and hiking boots. You can also use a lotion on your skin that helps to prevent contact with poison francesca. ??? If you think that your clothes or outdoor gear came in contact with poison francesca, rinse them off with a garden hose before you bring them inside your house. ??? When doing yard work or gardening, wear gloves, long sleeves, long pants, and boots. Wash your garden tools and gloves if they come in contact with poison francesca. ??? If you think that your pet has come into contact with poison francesca, wash them with pet shampoo and water. Make sure to wear gloves while washing your pet. Contact a doctor if: ??? You have open sores in the rash area. ??? You have any signs of infection. ??? You have redness that spreads past the rash area. ??? You have a fever. ??? You have a rash over a large area of your body. ??? You have a rash on your eyes, mouth, or genitals. ??? Your rash does not get better after a few weeks. Get help right away if: ??? Your face swells or your eyes swell shut. ??? You have trouble breathing. ??? You have trouble swallowing. These symptoms may be an emergency. Do not wait to see if the symptoms will go away. Get help rightaway. Call 911. This information is not intended to replace advice given to you by your health care provider. Make sure you discuss any questions you have with your health care provider. Document Revised: 01/08/2023 Document Reviewed: 01/08/2023 [employer] Patient Education ? 2023 [employer] 04-15-2025 Evaluation note* Diagnosis Onset Date Resolution Status Admit Date Poison francesca dermatitis acuteAugust 2024 9:08amUTI (urinary tract infection)acuteOctober 2024 10:52am [facility] Work Phone: 1(673) 811-615307-21-2025 NotePatient Education Dermatology Poison Francesca Dermatitis Poison francesca dermatitis is redness and soreness of the skin caused by chemicals in the leaves of the poison francesca plant. You may have very bad itching, swelling, a rash, and blisters. What are the causes? Touching a poison francesca plant. ??? Touching something that has the chemical on it. This may include animals or objects that have come in contact with the plant. What increases the risk? Going outdoors often in wooded or marshy areas. ??? Going outdoors without wearing protective clothing, such as closed shoes, long pants, and a long-sleeved shirt. What are the signs or symptoms? Skin redness. ??? Very bad itching. ??? A rash that often includes bumps and blisters. ? The rash usually appears 48 hours after exposure, if you have had it before. ? If this is the first time you have it, the rash may not appear until a week after exposure. ??? Swelling. This may occur if the reaction is very bad. Symptoms usually last for 1?2 weeks. The first time you get this condition, symptoms may last 3?4 weeks. How is this treated? This condition may be treated with: ??? Hydrocortisone cream or calamine lotion to relieve itching. ??? Oatmeal baths to soothe the skin. ??? Medicines, such as hqsj-kfq-jazcmdo antihistamine tablets. ??? Oral steroid medicine for very bad reactions. Follow these instructions at home: Medicines ??? Take or apply kqou-ovc-xmyezrg and prescription medicines only as told by your doctor. ??? Use hydrocortisone cream or calamine lotion as needed to help with itching. General instructions ??? Do not scratch or rub your skin. ??? Put a cold, wet cloth (cold compress) on the affected areas or take baths in cool water. This will help with itching. ??? Avoid hot baths and showers. ??? Take oatmeal baths as needed. Use colloidal oatmeal. You can get this at a pharmacy or grocery store. Follow the instructions on the package. ??? While you have the rash, wash your clothes right after you wear them. ??? Check the affected area every day for signs of infection. Check for: ? More redness, swelling, or pain. ? Fluid or blood. ? Warmth. ? Pus or a bad smell. ??? Keep all follow-up visits. Your doctor may want to see how your skin is doing with treatment. How is this prevented? Know what poison francesca looks like, so you can avoid it. ? This plant has three leaves with flowering branches on a single stem. ? The leaves are glossy. ? The leaves have uneven edges that come to a point. ??? If you touch poison francesca, wash your skin with soap and water right away. Be sure to wash under your fingernails. ??? When hiking or camping, wear long pants, a long-sleeved shirt, long socks, and hiking boots. You can also use a lotion on your skin that helps to prevent contact with poison francesca. ??? If you think that your clothes or outdoor gear came in contact with poison francesca, rinse them off with a garden hose before you bring them inside your house. ??? When doing yard work or gardening, wear gloves, long sleeves, long pants, and boots. Wash your garden tools and gloves if they come in contact with poison francesca. ??? If you think that your pet has come into contact with poison francesca, wash them with pet shampoo and water. Make sure to wear gloves while washing your pet. Contact a doctor if: ??? You have open sores in the rash area. ??? You have any signs of infection. ??? You have redness that spreads past the rash area. ??? You have a fever. ??? You have a rash over a large area of your body. ??? You have a rash on your eyes, mouth, or genitals. ??? Your rash does not get better after a few weeks. Get help right away if: ??? Your face swells or your eyes swell shut. ??? You have trouble breathing. ??? You have trouble swallowing. These symptoms may be an emergency. Do not wait to see if the symptoms will go away. Get help rightaway. Call 911. This information is not intended to replace advice given to you by your health care provider. Make sure you discuss any questions you have with your health care provider. Document Revised: 01/08/2023 Document Reviewed: 01/08/2023 [employer]vier Patient Education ? 2023 [employer] 01-30-2025 NotePatient Education Caregiving Fall Prevention in the Home, Adult Falls can cause injuries and can happen to people of all ages. There are many things you can do to make your home safer and to help prevent falls. What actions can I take to prevent falls? General information ??? Use good lighting in all rooms. Make sure to: ? Replace any light bulbs that burn out. ? Turn on the lights in dark areas and use night-lights. ??? Keep items that you use often in gyol-ji-vpsmk places. Lower the shelves around your home if needed. ??? Move furniture so that there are clear paths around it. ??? Do not use throw rugs or other things on the floor that can make you trip. ??? If any of your floors are uneven, fix them. ??? Add color or contrast paint or tape to clearly alex and help you see: ? Grab bars or handrails. ? First and last steps of staircases. ? Where the edge of each step is. ??? If you use a ladder or stepladder: ? Make sure that it is fully opened. Do not climb a closed ladder. ? Make sure the sides of the ladder are locked in place. ? Have someone hold the ladder while you use it. ??? Know where your pets are as you move through your home. What can I do in the bathroom? Keep the floor dry. Clean up any water on the floor right away. ??? Remove soap buildup in the bathtub or shower. Buildup makes bathtubs and showers slippery. ??? Use non-skid mats or decals on the floor of the bathtub or shower. ??? Attach bath mats securely with double-sided, non-slip rug tape. ??? If you need to sit down in the shower, use a non-slip stool. ??? Install grab bars by the toilet and in the bathtub and shower. Do not use towel bars as grab bars. What can I do in the bedroom? Make sure that you have a light by your bed that is easy to reach. ??? Do not use any sheets or blankets on your bed that hang to the floor. ??? Have a firm chair or bench with side arms that you can use for support when you get dressed. What can I do in the kitchen? Clean up any spills right away. ??? If you need to reach something above you, use a step stool with a grab bar. ??? Keep electrical cords out of the way. ??? Do not use floor sudanese or wax that makes floors slippery. What can I do with my stairs? Do not leave anything on the stairs. ??? Make sure that you have a light switch at the top and the bottom of the stairs. ??? Make sure that there are handrails on both sides of the stairs. Fix handrails that are broken or loose. ??? Install non-slip stair treads on all your stairs if they do not have carpet. ??? Avoid having throw rugs at the top or bottom of the stairs. ??? Choose a carpet that does not hide the edge of the steps on the stairs. Make sure that the carpet is firmly attached to the stairs. Fix carpet that is loose or worn. What can I do on the outside of my home? Use bright outdoor lighting. ??? Fix the edges of walkways and driveways and fix any cracks. Clear paths of anything that can make you trip, such as tools or rocks. ??? Add color or contrast paint or tape to clearly alex and help you see anything that might make you trip as you walk through a door, such as a raised step or threshold. ??? Trim any bushes or trees on paths to your home. ??? Check to see if handrails are loose or broken and that both sides of all steps have handrails. Install guardrails along the edges of any raised decks and porches. ??? Have leaves, snow, or ice cleared regularly. Use sand, salt, or ice melter on paths if you livewhere there is ice and snow during the winter. ??? Clean up any spills in your garage right away. This includes grease or oil spills. What other actions can I take? Review your medicines with your doctor. Some medicines can cause dizziness or changes in blood pressure, which increase your risk of falling. ??? Wear shoes that: ? Have a low heel. Do not wear high heels. ? Have rubber bottoms and are closed at the toe. ? Feel good on your feet and fit well. ??? Use tools that help you move around if needed. These include: ? Canes. ? Walkers. ? Scooters. ? Crutches. ??? Ask your doctor what else you can do to help prevent falls. This may include seeing a physical therapist to learn to do exercises to move better and get stronger. Where to find more information ??? Centers for Disease Control and Prevention, STEADI: cdc.gov ??? National [place] on Aging: ruy.nih.gov ??? National [place] on Aging: ruy.nih.gov Contact a doctor if: ??? You are afraid of falling at home. ??? You feel weak, drowsy, or dizzy at home. ??? You fall at home. Get help right away if you: ??? Lose consciousness or have trouble moving after a fall. ??? Have a fall that causes a head injury. These symptoms may be an emergency. Get help right away. Call 911. ??? Do not wait to see if the symptoms will go away. ??? Do (more content not included)...[facility]02-25-2025 Note Patient Education Infectious Disease Upper Respiratory Infection, Adult An upper respiratory infection (URI) affects the nose, throat, and upper airways that lead to the lungs. The most common type of URI is often called the common cold. URIs usually get better on their own, without medical treatment. What are the causes? A URI is caused by a germ (virus). You may catch these germs by: ??? Breathing in droplets from an infected person's cough or sneeze. ??? Touching something that has the germ on it (is contaminated) and then touching your mouth, nose, or eyes. What increases the risk? You are more likely to get a URI if: ??? You are very young or very old. ??? You have close contact with others, such as at work, school, or a health care facility. ??? You smoke. ??? You have long-term (chronic) heart or lung disease. ??? You have a weakened disease-fighting system (immune system). ??? You have nasal allergies or asthma. ??? You have a lot of stress. ??? You have poor nutrition. What are the signs or symptoms? Runny or stuffy (congested) nose. ??? Cough. ??? Sneezing. ??? Sore throat. ??? Headache. ??? Feeling tired (fatigue). ??? Fever. ??? Not wanting to eat as much as usual. ??? Pain in your forehead, behind your eyes, and over your cheekbones (sinus pain). ??? Muscle aches. ??? Redness or irritation of the eyes. ??? Pressure in the ears or face. How is this treated? URIs usually get better on their own within 7?10 days. Medicines cannot cure URIs, but your doctor may recommend certain medicines to help relieve symptoms, such as: ??? Ypjd-vld-ioiiwrs cold medicines. ??? Medicines to reduce coughing (cough suppressants). Coughing is a type of defense against infection that helps to clear the nose, throat, windpipe, and lungs (respiratory system). Take these medicines only as told by your doctor. ??? Medicines to lower your fever. Follow these instructions at home: Activity ??? Rest as needed. ??? If you have a fever, stay home from work or school until your fever is gone, or until your doctor says you may return to work or school. ? You should stay home until you cannot spread the infection anymore (you are not contagious). ? Your doctor may have you wear a face mask so you have less risk of spreading the infection. Relieving symptoms ??? Rinse your mouth often with salt water. To make salt water, dissolve ??1 tsp (3?6 g) of salt in1 cup (237 mL) of warm water. ??? Use a cool-mist humidifier to add moisture to the air. This can help you breathe more easily. Eating and drinking ??? Drink enough fluid to keep your pee (urine) pale yellow. ??? Eat soups and other clear broths. General instructions ??? Take wzef-wil-bkuqgqv and prescription medicines only as told by your doctor. ??? Do not smoke or use any products that contain nicotine or tobacco. If you need help quitting, ask your doctor. ??? Avoid being where people are smoking (avoid secondhand smoke). ??? Stay up to date on all your shots (immunizations), and get the flu shot every year. ??? Keep all follow-up visits. How to prevent the spread of infection to others ??? Wash your hands with soap and water for at least 20 seconds. If you cannot use soap and water, use hand straight knife machine cutter. ??? Avoid touching your mouth, face, eyes, or nose. ??? Cough or sneeze into a tissue or your sleeve or elbow. Do not cough or sneeze into your hand orinto the air. Contact a doctor if: ??? You are getting worse, not better. ??? You have any of these: ? A fever or chills. ? Brown or red mucus in your nose. ? Yellow or brown fluid (discharge)coming from your nose. ? Pain in your face, especially when you bend forward. ? Swollen neck glands. ? Pain when you swallow. ? White areas in the back of your throat. Get help right away if: ??? You have shortness of breath that gets worse. ??? You have very bad or constant: ? Headache. ? Ear pain. ? Pain in your forehead, behind your eyes, and over your cheekbones (sinus pain). ? Chest pain. ??? You have long-lasting (chronic) lung disease along with any of these: ? Making high-pitched whistling sounds when you breathe, most often when you breathe out (wheezing). ? Long-lasting cough (more than 14 days). ? Coughing up blood. ? A change in your usual mucus. ??? You have a stiff neck. ??? You have changes in your: ? Vision. ? Hearing. ? Thinking. ? Mood. These symptoms may be an emergency. Get help right away. Call 911. ??? Do not wait to see if the symptoms will go away. ??? Do not drive yourself to the hospital. Summary ??? An upper respiratory infection (URI) is caused by a germ (virus). The most common type of URI is often called the common cold. ??? URIs usually get better within 7?10 days. ??? Take laao-sum-ofzyexe and prescription med (more content not included)... [facility]06-28-2024 NotePatient Education Urology Dysuria Dysuria is pain or discomfort during urination. The pain or discomfort may be felt in the part of the body that drains urine from the bladder (urethra) or in the surrounding tissue of the genitals. The pain may also be felt in the groin area, lower abdomen, or lower back. You may have to urinate frequently or have the sudden feeling that you have to urinate (urgency). Dysuria can affect anyone, but it is more common in females. Dysuria can be caused by many different things, including: ? Urinary tract infection. ? Kidney stones or bladder stones. ? Certain STIs (sexually transmitted infections), such as chlamydia. ? Dehydration. ? Inflammation of the tissues of the vagina. ? Use of certain medicines. ? Use of certain soaps or scented products that cause irritation. Follow these instructions at home: Medicines ? Take esfb-eqe-dseyrea and prescription medicines only as told by your health care provider. ? If you were prescribed an antibiotic medicine, take it as told by your health care provider. Do not stop taking the antibiotic even if you start to feel better. Eating and drinking ? Drink enough fluid to keep your urine pale yellow. ? Avoid caffeinated beverages, tea, and alcohol. These beverages can irritate the bladder and make dysuria worse. In males, alcohol may irritate the prostate. General instructions ? Watch your condition for any changes. ? Urinate often. Avoid holding urine for long periods of time. ? If you are female, you should wipe from front to back after urinating or having a bowel movement.Use each piece of toilet paper only once. ? Empty your bladder after sex. ? Keep all follow-up visits. This is important. ? If you had any tests done to find the cause of dysuria, it is up to you to get your test results.Ask your health care provider, or the department that is doing the test, when your results will be ready. Contact a health care provider if: ? You have a fever. ? You develop pain in your back or sides. ? You have nausea or vomiting. ? You have blood in your urine. ? You are not urinating as often as you usually do. Get help right away if: ? Your pain is severe and not relieved with medicines. ? You cannot eat or drink without vomiting. ? You are confused. ? You have a rapid heartbeat while resting. ? You have shaking or chills. ? You feel extremely weak. Summary ? Dysuria is pain or discomfort while urinating. Many different conditions can lead to dysuria. ? If you have dysuria, you may have to urinate frequently or have the sudden feeling that you have to urinate (urgency). ? Watch your condition for any changes. Keep all follow-up visits. ? Make sure that you urinate often and drink enough fluid to keep your urine pale yellow. This information is not intended to replace advice given to you by your health care provider. Make sure you discuss any questions you have with your health care provider. Document Revised: 03/22/2021 Document Reviewed: 03/22/2021 [employer] Patient Education ? 2022 [employer] 06-08-2023 Evaluation note* Encounter Date Diagnosis Assessment Notes Treatment Notes Treatment Clinical Notes May, Dysuria (ICD-10 - R30.0) May,Urinary tract infection without hematuria, site unspecified (ICD-10 - N39.0)Drink plenty fluids, get plenty of rest. Take the Bactrim and the Pyridium as prescribed until gone. Take Tylenol or Motrin as needed for aches pains or fevers. Follow-up with your family physician if no improvement in 2 to 3 days [facility] Other 08-23-2023 Evaluation note* Encounter Date Diagnosis Assessment Notes Treatment Notes Treatment Clinical Notes Mar, Dysuria (ICD-10 - R30.0) Mar,cute cystitis without hematuria (ICD-10 - N30.00)Acute cystitis home care material was printed Drink plenty fluids, get plenty of rest. Continue home medications as prescribed. Take the Bactrim and Pyridium as prescribed until gone. Follow-up with your family physician if no improvement in 2 to 3 days. Take Tylenol or Motrin as needed for aches pains or fevers [facility] Other 12-10-2021 NotePROCEDURE: XR SHOULDER LT 2V or > COMPARISON: None. HISTORY: Pain of left shoulder joint FINDINGS: BONES:No fracture, acute abnormality, or significant arthropathy. SOFT TISSUES:Negative. No visible soft tissue swelling. EFFUSION:None visible. OTHER: Negative. IMPRESSION: No acute disease. Electronically authenticated by: ELZBIETA ASHER Date: 2021-08-02 11:09[facility] App[facility]ments Appointment Date:11/05/2022 03:30:00 PM Scheduled [facility] Type:MA Screen () Diagnostic Tests Pending * PAP [id number]/22/22 Future Scheduled Tests Radiology* MA Mamm Screen w/CAD if perf and 3D Smooth [facility] Appointment Date:02/18/2024 08:20:00 AM Scheduled Provider: Location:[facility] Appointment Type: Lab Draw Appointment Date:01/30/2025 08:00:00 AM Scheduled Provider: Location:[facility] Appointment Type:FM Medicare Wellness [facility] Future Appointments Appointment Date:02/18/2024 08:20:00 AM Scheduled Provider: Location:[facility] Appointment Type: Lab Draw Appointment Date:01/30/2025 08:00:00 AM Scheduled Provider: Location:[facility] Appointment Type:FM Medicare Wellness Initial Future Scheduled Tests Laboratory* Lipid [facility] App[facility]ments Appointment Date:01/30/2025 08:00:00 AM Scheduled Provider: Location:[facility] Appointment Type: Medicare Wellness [facility] Future Appointments Appointment Date:01/30/2025 08:00:00 AM Scheduled Provider: Location:[facility] Appointment Type:FM Medicare Wellness Initial Diagnostic Tests Pending * [facility] Appointment Date:01/30/2025 08:00:00 AM Scheduled Provider: Location:[facility] Appointment Type:FM Medicare Wellness Initial Diagnostic Tests Pending * Urine Culture 08/30/24 [facility] Evaluation + Plan note Future Appointments Appointment Date:02/14/2025 08:20:00 AM Scheduled Provider:Jenifer Dotson Location:[facility] Appointment Type: Open Appointment Date:01/31/2026 08:00:00 AM Scheduled Provider: Location:[facility] Appointment Type:FM Medicare Wellness Subsequent Diagnostic Tests Pending * HCV Antibody RFX to Quant PCR 02/13/25 [facility] Evaluation noteNo assessment information available [facility] Work Phone: Evaluation note* Diagnosis Onset Date Resolution Status Admit Date Poison francesca dermatitis acuteAugust 2024 9:08am [facility] Work Phone: History general Narrative - Reported* Type Description Date Medical History Hypothyroid Surgical HistorycholecystectomySurgical HistoryappendectomySurgical History shoulder arthroscopyHospitalization Historysee above [facility] Other Hospital course Narrative No data available for this section [facility] No data available for this section [facility] No data available for this section [facility]Reason for referral (narrative)No reason for referral information [facility] Work Phone: Summary Purpose Family History No Family History Records Found Relationship Condition Age at Onset Recorded Date/T ro[place] father Malignant neoplasm Unknown DeceasedUnknownfamily memberDeceasedUnknownmotherMalignant neoplasmUnknown Advance Directives No Advanced Directives Records Found Advance Directive Response Recorded Date/ Time Advance Directives No April 17, 2023 6:20pm Chief Complaint and Reason for Visit Chief Complaint R30.0 Dysuria Chief Complaint Admit Date poison francesca rash April 15, 2025 9: 08am Reason for Visit Admit Date Poison francesca dermatitis April 15, 2025 9:08am Chief Complaint Admit Date poison francesca rash April 15, 2025 9: 08am Poss uti June 04, 2025 1 0:52am Reason for Visit Admit Date Poison francesca dermatitis April 15, 2025 9:08am UTI (urinary tract infection) June 042024 10:52am Additional Source Comments INFORMATION SOURCE (unrecogn ized section and content) DATE CREATED AUTHOR 10/02/2021 [facility] DATE CREATED AUTHOR AUTHOR'S ORGANIZ ATION 02/22/2024 [facility] DATE CREATED AUTHOR AUTHOR'S ORGANIZ ATION 02/27/2024 [facility] DATE CREATED AUTHOR AUTHOR'S ORGANIZ ATION 02/28/2024 [facility] DATE CREATED AUTHOR AUTHOR'S ORGANIZ ATION 09/05/2024 [facility] DATE CREATED AUTHOR AUTHOR'S ORGANIZ ATION 02/01/2025 [facility] DATE CREATED AUTHOR AUTHOR'S ORGANIZ ATION 02/15/2025 [facility] DATE CREATED AUTHOR AUTHOR'S ORGANIZ ATION 02/16/2025 [facility] DATE CREATED AUTHOR AUTHOR'S ORGANIZ ATION 04/22/2025 [facility] DATE CREATED AUTHOR AUTHOR'S ORGANIZ ATION 05/14/2025 [facility] DATE CREATED AUTHOR AUTHOR'S ORGANIZ ATION 05/25/2025 [facility] DATE CREATED AUTHOR AUTHOR'S ORGANIZ ATION 05/26/2025 [facility] DATE CREATED AUTHOR AUTHOR'S ORGANIZ ATION 05/27/2025 [facility] DATE CREATED AUTHOR AUTHOR'S ORGANIZ ATION 06/11/2025 [facility] DATE CREATED AUTHOR AUTHOR'S ORGANIZ ATION 07/01/2025 [facility] Patient Care team informatio n (unrecognized section and content) Team Status: Inactive Member Role Status Dates Marilyn Pastrana NP-C Attending Provider Active Team Status: Active Member Role Status Dates Jenifer Landry NP-C Primary Care Provider Active Team Status: Inactive Member Role Status Dates Azra Grove APRN Attending Provider Active S tart: April 15, 2025 End: April 15, 2025DEE CorderoCPrimary Care ProviderActiveStart: April 15, 2025 End: April 15, 2025 Team Status: Inactive Member Role Status Dates DEE CorderoC Primary Care Provider Active Start: June 04, 2025 End: June 04Eliza Beasleytenjade ProviderActiveStart: June 04, 2025 End: June 04, 2025 Team Status: Inactive Member Role Status Dates Azra Grove APRN Attending Provider Active S tart: June 04, 2025 End: June 04, 2025 REASON FOR VISIT (unrecogniz ed section and content) POSSIBLE UTIPOSSIBLE UTIPOSS IBLE UTIpossible utipossible utipossible uti Goals (unrecognized section and content) Goals may be documented in a n alternate section FOR RECORDS PERTAINING TO PATIENTS WHO ARE OR HAVE BEEN ENROLLED IN A CHEMICAL DEPENDENCY/SUBSTANCEABUSE PROGRAM, SOME INFORMATION MAY BE OMITTED. This clinical summary was aggregated from multiple sources. Caution should be exercised in using it in the provision of clinical care. This summary normalizes information from multiple sources, and as a consequence, information in this document may materially change the coding, format and clinical context of patient data. In addition, data may be omitted in some cases. CLINICAL DECISIONS SHOULD BE BASED ON THE PRIMARY CLINICAL RECORDS. [facility]. provides no warranty or guarantee of the accuracy or completeness of information in this document.
--- NOTE | 2025-07-31 09:27 | XR_ITS ---
The [address] [address] Patient Name: FELICITY MARTINEZ MRN: [id number] date: 1960 Sex: F Assigned Patient Location: [facility] Current Patient Location: [facility] Accession/Order Number: [id number] Exam Date: 07/31/2025 09:40 Report Date: 07/31/2025 09:55 At the request of: MICHAEL FINNEY DPJavier Procedure: XR foot RT min 3V RIGHT FOOT - 3 views CLINICAL DATA: Right foot pain, predominantly at the heel for the past month. No injury COMPARISON: None Standing AP, lateral and oblique views were obtained. There is no evidence of fracture or dislocation. A plantar calcaneal spur is present. There are no significant soft tissue abnormalities. XR/XR foot RT min 3V IMPRESSION: CALCANEAL SPUR. NO ACUTE BONY FINDINGS. Impression dictated by: Teresa Hodgson M.D. 07/31/2025 9:55 AM Dictation Location: [place] [address] Electronically authenticated by: [id number] Date: 07/31/2025 09:55
== END 2025-07-31 09:15 | disposition home or self-care (01) ==
LOC: RAD 09:17
PROVIDERS: PCP Nurse Practitioner; Visit Provider Podiatrist Foot & Ankle Surgery
DX: M79.671 Pain in right foot (principal); M77.31 Calcaneal spur, right foot
CPT/HCPCS: 73630